=== PATIENT | female | born 1935 | race Caucasian/White ===

== ENCOUNTER 2018-01-12 14:19 | Inpatient (IN) ==
--- NOTE | 2018-01-12 14:39 | Emergency Department Note ---
Disposition Clinical Impression: Decreased ambulation status Fall Qualifiers: Encounter type: initial encounter Qualified Code(s): W19.XXXA - Unspecified fall, initial encounter Closed right hip fracture Qualifiers: Encounter type: initial encounter Qualified Code(s): S72.001A - Fracture of unspecified part of neck of right femur, initial encounter for closed fracture Disposition: Admitted As Inpatient Condition: Good Time of Disposition: 15:47 Fall HPI - General Chief Complaint: ED Fall Stated Complaint: hip injury Time Seen by Provider: 01/12/18 14:21 Source: patient, family, EMS Mode of arrival: EMS Limitations: no limitations Nursing Notes Reviewed: Yes Vital Signs Reviewed: Yes - History of Present Illness HPI Narrative: Patient is an 82-year-old female with past medical history of hypertension, dementia, depression. 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 She presents today due to a fall. Patient states that she was in the kitchen, pulled a drawer out and lost her balance. She fell onto her right hip. She is currently complaining of pain in both hips. Denies hitting her head, loss consciousness, any neck or back pain, chest pain, shortness breath, nausea, vomiting, fevers, diarrhea, abdominal pain, numbness, tingling, weakness. Denies any current vertigo. - Related Data Home Medications Medication Instructions Recorded Confirmed Omeprazole [PriLOSEC] 40 mg PO DAILY 12/08/17 01/12/18 Citalopram Hydrobromide 10 mg PO DAILY 01/12/18 01/12/18 [Citalopram HBr] Docusate [Colace] 100 mg PO DAILY 01/12/18 01/12/18 Melatonin 5 mg PO HS 01/12/18 01/12/18 Multivitamin [One Daily 1 each PO DAILY 01/12/18 01/12/18 Multivitamin] Allergies Allergy/AdvReac Type Severity Reaction Status Date / Time albuterol Allergy Hallucinati Verified 01/12/18 16:29 ng ciprofloxacin [From Cipro] Allergy Nausea Verified 12/08/17 08:06 Penicillins [PCN] Allergy Rash Verified 12/08/17 08:06 Sulfa (Sulfonamide Allergy Anaphylaxis Verified 12/08/17 08:06 Antibiotics) All systems ED: reviewed and negative except as stated. Constitutional: Denies: fever Cardiovascular: Denies: chest pain Respiratory: Denies: cough, dyspnea Gastrointestinal: Denies: abdominal pain, nausea, vomiting, diarrhea Genitourinary: Denies: urgency, dysuria Musculoskeletal: Reports: arthralgia. Denies: back pain, neck pain Neurological: Denies: headache, weakness, numbness, paresthesias Fall PMH - Past Medical History Medical history: Reports: dementia, other Surgical history: Reports: non-contributory Psychiatric history: Reports: no psych history INTERVENTION MANAGER history: Reports: no INTERVENTION MANAGER history - Social History Smoking Status: Never smoker Alcohol use: Reports: none Drug use: Reports: none Physical Exam - General Limitations: no limitations General appearance: alert - Head Head exam: atraumatic, normocephalic, normal inspection - Eye Eye exam: Present: normal appearance, PERRL, EOMI - ENT ENT exam: normal exam, normal oropharynx, mucous membranes moist - Neck Neck exam: Present: normal inspection, full ROM, trachea midline - Chest Chest inspection: Present: normal inspection, symmetric chest wall rise - Respiratory Respiratory exam: Present: normal lung sounds bilaterally - Cardiovascular Cardiovascular exam: Present: regular rate, normal rhythm, normal heart sounds - Abdominal Exam Abdominal exam: Present: soft, Non-Tender. Absent: tenderness, distention, guarding, rebound, rigidity - Extremities Exam Extremities exam: Present: normal inspection, full ROM, tenderness (Right lateral greater trochanter; no obvious shortening of either lower extremity. Neurovascular intact bilateral lower extremities.). Absent: pedal edema - Neurological Exam Neurological exam: Present: alert, oriented X3 - Psychiatric Psychiatric exam: Present: normal affect, normal mood - Skin Skin exam: Present: warm, dry, intact, normal color, other (No bruising) Course Course Narrative: Vitals stable. Tenderness of the right lateral greater trochanter but no obvious fracture or shortening of the extremities. Will perform imaging of the hips for further assessment. 15:44 5 show leukocytosis. Otherwise, no other major lab abnormality. Urinalysis is pending. Chest x-ray negative. Hip x-ray shows comminuted fractures of the right femoral neck, intertrochanteric. Orthopedics was contacted and Dr. Badillo has been consulted. Will come to bedside for evaluation. We will admit the patient for right hip fracture, pain control. We will also order set her as patient is noted to "wander" at night and fear of fall risk. Hip/Pelvis X-Ray 01/12/18 14:25 IMPRESSION: 1. Comminuted intertrochanteric fracture of the right femoral neck 2. No acute abnormalities seen in the pelvis or left hip D/ / Fernando Hart MD / Fernando Hart MD Interpreting Provider: Fernando Hart MD Chest X-Ray 01/12/18 14:27 IMPRESSION: No acute process. D/ / Fernando Hart MD / Fernando Hart MD Interpreting Provider: Fernando Hart MD Vital Signs Temperature 98.2 F 01/12/18 14:29 Pulse Rate 82 01/12/18 14:29 Respiratory Rate 14 01/12/18 14:29 Blood Pressure 124/55 01/12/18 14:29 O2 Sat by Pulse Oximetry 97 01/12/18 14:29 Temperature 98.2 F 01/12/18 14:29 Pulse Rate 74 01/12/18 16:40 Respiratory Rate 16 01/12/18 16:40 Blood Pressure 134/74 01/12/18 16:40 O2 Sat by Pulse Oximetry 100 01/12/18 16:40 Oxygen Delivery Oxygen Delivery Nasal Cannula Fall - MDM Narrative Medical decision making narrative: Vitals stable. Tenderness of the right lateral greater trochanter but no obvious fracture or shortening of the extremities. Will perform imaging of the hips for further assessment. 15:44 5 show leukocytosis. Otherwise, no other major lab abnormality. Urinalysis is pending. Chest x-ray negative. Hip x-ray shows comminuted fractures of the right femoral neck, intertrochanteric. Orthopedics was contacted and Dr. Badillo has been consulted. Will come to bedside for evaluation. We will admit the patient for right hip fracture, pain control. We will also order set her as patient is noted to "wander" at night and fear of fall risk. - Medical Records Medical records reviewed: Yes I reviewed the patient's medical records. - Lab Data Lab results reviewed: Yes I reviewed the patient's lab results. Result diagrams: 01/12/18 14:45 01/12/18 14:45 Lab Results 01/12/18 01/12/18 01/12/18 Range/Units 14:45 14:45 14:45 WBC 19.5 H (4.3-11.1) K/mcL RBC 4.38 (3.82-4.97) M/mcL Hgb 13.2 (11.5-15.4) g/dL Hct 40.1 (35.3-44.9) % MCV 91.6 (83.0-100.0) fL MCH 30.1 (28.0-33.3) pg MCHC 32.9 (31.6-35.5) g/dL RDW 15.3 H (11.5-14.5) % Plt Count 186 (140-400) K/mcL MPV 10.6 (9.4-12.4) fL Immature Gran % 0.7 (0-4) % Seg Neutrophils % 60.5 % Lymphocytes % 31.2 % Monocytes % 6.1 % Eosinophils % 1.2 % Basophils % 0.3 % Neutrophils # 11.8 H (1.6-8.9) K/mcL Lymphocytes # 6.1 H (0.6-4.6) K/mcL Monocytes # 1.2 (0.0-1.3) K/mcL Eosinophils # 0.2 (0.0-0.6) K/mcL Basophils # 0.1 (0.0-0.2) K/mcL Sodium 137 (136-145) mEq/L Potassium 3.9 (3.5-5.1) mEq/L Chloride 107 (98-107) mEq/L Carbon Dioxide 22 L (23-29) mEq/L BUN 9 (8-23) mg/dL Creatinine 0.77 (0.60-1.20) mg/dL Est GFR ( Amer) > 60 (> 60) Est GFR (Non-Af Amer) > 60 (> 60) BUN/Creatinine Ratio 12 (6-26) Glucose 208 H (70-105) mg/dL Calculated Osmolality 289 (280-300) Calcium 8.7 (8.6-10.3) mg/dL Troponin I < 0.03 (< 0.04) ng/mL Blood Type A POSITIVE Antibody Screen NEGATIVE - Radiology Data Radiology results reviewed: Yes I reviewed the patient's radiology results. Hip/Pelvis X-Ray 01/12/18 14:25 IMPRESSION: 1. Comminuted intertrochanteric fracture of the right femoral neck 2. No acute abnormalities seen in the pelvis or left hip D/ / Fernando Hart MD / Fernando Hart MD Interpreting Provider: Fernando Hart MD Chest X-Ray 01/12/18 14:27 IMPRESSION: No acute process. D/ / Fernando Hart MD / Fernando Hart MD Interpreting Provider: Fernando Hart MD S.B.A.R. - S.B.A.R. Situation: Demographics, MOA Background: Presenting Complaint, Relevant PMH, Meds, & Allergies Assessment: Vital Signs, Course and respsone to treatment, Exam Concerns, Patient/Family Expectation, Pertinant Lab Results, Outstanding Labs (UA) Recommendation: Barrier(s) to disposition, Recommendation based on pending studies, treatments, or consults S.B.A.R. Report Given to: Dr. Cervantes
--- NOTE | 2018-01-12 14:45 | Emergency Department Note ---
Disposition Clinical Impression: Fall Qualifiers: Encounter type: initial encounter Qualified Code(s): W19.XXXA - Unspecified fall, initial encounter Disposition: Admitted As Inpatient Condition: Good Forms: ED Satisfaction Letter General Adult HPI - General Chief complaint: ED Fall Stated complaint: hip injury Time Seen by Provider: 01/12/18 14:21 Source: patient, family, EMS Mode of arrival: EMS Limitations: no limitations Nursing Notes Reviewed: Yes Vital Signs Reviewed: Yes - History of Present Illness HPI Narrative: Attestation note: Patient was seen with the emergency medicine resident/nurse practitioner/physician licensed physical therapy assistant/transitional resident/medical student: Dr. LIAM BARAKAT I have personally performed a face to face evaluation on this patient. I have reviewed and agree with history and physical examination patient management and disposition. Briefly the salient points of the case are as follows: 82-year-old female by EMS status post fall while pulling a drawer out in the kitchen. She suffers from vertigo and Alzheimer's. She is not on blood thinners. She fell onto her left hip complains of bilateral hip pain and left groin pain. She appears to have shortening and internal rotation of the left hip. Patient was given 100 g of fentanyl intranasally by EMS prior to arrival which has some resolution of pain. Patient is getting screening labs imaging. Patient is under control at this time. Saline lock in place in case additional doses are needed. Disposition pending. With admission anticipated. Pain Scale: 7 - Related Data Home Medications Medication Instructions Recorded Confirmed Donepezil [Aricept] 10 mg PO HS 12/08/17 12/08/17 Omeprazole [PriLOSEC] 40 mg PO DAILY 12/08/17 12/08/17 Previous Rx's Medication Instructions Recorded Cefdinir [Omnicef] 300 mg PO BID #12 capsule 12/08/17 Allergies Allergy/AdvReac Type Severity Reaction Status Date / Time albuterol Allergy Rash Verified 12/08/17 08:06 ciprofloxacin [From Cipro] Allergy Nausea Verified 12/08/17 08:06 Penicillins [PCN] Allergy Rash Verified 12/08/17 08:06 Sulfa (Sulfonamide Allergy Anaphylaxis Verified 12/08/17 08:06 Antibiotics) Constitutional: Denies: fever Cardiovascular: Denies: chest pain Respiratory: Denies: cough, dyspnea Gastrointestinal: Denies: abdominal pain, nausea, vomiting, diarrhea Genitourinary: Denies: urgency, dysuria Musculoskeletal: Reports: arthralgia. Denies: back pain, neck pain Neurological: Denies: headache, weakness, numbness, paresthesias Past Medical History - Past Medical History Medical history: Reports: dementia, other Surgical history: Reports: non-contributory Psychiatric history: Reports: no psych history MANAGER MEDIA history: Reports: no MANAGER MEDIA history - Social History Smoking Status: Never smoker Smokeless Tobacco Status: No Alcohol use: Reports: none Drug use: Reports: none Physical Exam - General Limitations: no limitations General appearance: alert Course Vital Signs Temperature 98.2 F 01/12/18 14:29 Pulse Rate 82 01/12/18 14:29 Respiratory Rate 14 01/12/18 14:29 Blood Pressure 124/55 01/12/18 14:29 O2 Sat by Pulse Oximetry 97 01/12/18 14:29 Temperature 98.2 F 01/12/18 14:29 Pulse Rate 82 01/12/18 14:29 Respiratory Rate 14 01/12/18 14:29 Blood Pressure 124/55 01/12/18 14:29 O2 Sat by Pulse Oximetry 97 01/12/18 14:29 Oxygen Delivery Oxygen Delivery Room Air
[2018-01-12 14:56] LABS: Basophils # 0.1 K/mcL (0.0-0.2); Basophils % 0.3 %; Eosinophils # 0.2 K/mcL (0.0-0.6); Eosinophils % 1.2 %; Hematocrit 40.1 % (35.3-44.9); Hemoglobin 13.2 g/dL (11.5-15.4); Immature Granulocytes % 0.7 % (0-4); Lymphocytes # 6.1 K/mcL (0.6-4.6); Lymphocytes % 31.2 %; Mean Corpuscular HGB Conc 32.9 g/dL (31.6-35.5); Mean Corpuscular Hemoglobin 30.1 pg (28.0-33.3); Mean Corpuscular Volume 91.6 fL (83.0-100.0); Mean Platelet Volume 10.6 fL (9.4-12.4); Monocytes # 1.2 K/mcL (0.0-1.3); Monocytes % 6.1 %; Neutrophils # 11.8 K/mcL (1.6-8.9); Platelet Count 186 K/mcL (140-400); Red Blood Count 4.38 M/mcL (3.82-4.97); Red Cell Distribution Width 15.3 % (11.5-14.5); Segmented Neutrophils % 60.5 %
[2018-01-12 15:18] LABS: BUN/Creatinine Ratio 12 (6-26); Blood Urea Nitrogen 9 mg/dL (8-23); Calcium 8.7 mg/dL (8.6-10.3); Carbon Dioxide 22 mEq/L (23-29); Chloride 107 mEq/L (98-107); Glucose 208 mg/dL (70-105); Osmolality,Calculated 289 (280-300); Potassium 3.9 mEq/L (3.5-5.1); Sodium 137 mEq/L (136-145); Troponin I < 0.03 ng/mL (< 0.04); eGFR For Non-African Americans > 60 (> 60)
[2018-01-12] MEDS ORDERED: Ondansetron 4 MG/2 ML VIAL IVP ONE ×2 (15:24→17:30)
[2018-01-12] MEDS ORDERED: *HR* FentaNYL (PF) 100 MCG/2 ML VIAL IVP ONE ×2 (15:28→17:30)
--- NOTE | 2018-01-12 17:41 | Internal Med History&Physical ---
<Caitlyn Mon - Last Filed: 01/12/18 18:24> Date of Encounter: 01/12/18 Time of Encounter: 17:15 Internal Medicine - H&P: HPI Chief complaint: right hip fracture Admitted From: Emergency Dept Plans for Post Hospital Care: Transfer Assisted Facility History of present illness: Ms. Hernandez is a 82 year old female with PMH of dementia, hairy cell leukemia, CAD who presented to [facility] after fall. She had an unwitnessed fall at home when pulling a drawer out. Her home health nurse heard her yell for help. She reported she did not hit her head. She is not on anticoagulation. She has never had a fall in the past. Of note, she had a holter monitor on December due to V.fib. On examination her daughter and home health aid were at bedside. They report that her PCP has taken her off all of her BP meds due to hypotension. She denies chest pain, shortness of breath, fever, chills, headache, change in vision, nausea, vomiting, dysuria, hematuria. She denies alcohol, drug, and smoking. Past Med Surg Social Fam HX - Past Medical History Attestation: Yes The following information was validated with the patient. 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 cdiff,constipation,colon polyps,diverticulosis,cardiac cath, Alzheimers Psychiatric history: no psych history - Past Surgical History Surgical History: non-contributory Additional surgical history: splenectomy,carpal tunnel,cardiac stenting, - Social History Smoking Status: Never smoker Smokeless Tobacco Status: No Alcohol use: none Drug use: none - Family History Father Living Status: Mother Living Status: Internal Medicine - H&P: Meds Omeprazole [PriLOSEC] 40 mg PO DAILY 12/08/17 [History] Citalopram Hydrobromide [Citalopram HBr] 10 mg PO DAILY 01/12/18 [History] Docusate [Colace] 100 mg PO DAILY 01/12/18 [History] Melatonin 5 mg PO HS 01/12/18 [History] Multivitamin [One Daily Multivitamin] 1 each PO DAILY 01/12/18 [History] Allergy/AdvReac Type Severity Reaction Status Date / Time albuterol Allergy Hallucinati Verified 01/12/18 16:29 ng ciprofloxacin [From Cipro] Allergy Nausea Verified 12/08/17 08:06 Penicillins [PCN] Allergy Rash Verified 12/08/17 08:06 Sulfa (Sulfonamide Allergy Anaphylaxis Verified 12/08/17 08:06 Antibiotics) All Systems PM: A 10-system review of systems was performed and is negative for pertinent findings except as documented above in the HPI. - Constitutional Constitutional: falls, no chills, no fatigue, no fever(s), no weakness - EENT Eyes: no change in vision - Cardiovascular Cardiovascular ROS IM: no chest pain, no dyspnea, no edema - Respiratory Respiratory: no cough, no dyspnea, no wheezing - Gastrointestinal Gastrointestinal: no abdominal pain, no diarrhea, no nausea, no vomiting - Genitourinary Genitourinary: no dysuria, no hematuria, no urinary frequency, no urinary incontinence, no urinary urgency - Musculoskeletal Musculoskeletal ROS IM: no deformity, no joint swelling, no myalgias - Integumentary Integumentary IM: no pruritus, no rash, no skin ulcer - Neurological Neurological ROS: confusion, memory loss, no headache(s) - Constitutional Vitals: Temp Pulse Resp BP Pulse Ox 98.2 F 74 16 134/74 100 01/12/18 14:29 01/12/18 16:40 01/12/18 16:40 01/12/18 16:40 01/12/18 16:40 General appearance: Present: A&O X 2 (person and place), pleasant, no acute distress Exam: see above - Head Head exam: Present: atraumatic, normal inspection - Eye Eye exam: Present: conjunctival injection. Absent: scleral icterus - ENT ENT exam: Present: mucous membranes moist - Respiratory Respiratory exam: Present: CTAB. Absent: rhonchi, wheezes - Cardiovascular Cardiovascular exam: Present: RRR, +S1, +S2 - GI/Abdominal GI/Abdominal exam: Present: normal bowel sounds, soft. Absent: tenderness - Extremities Exam Extremities exam: Present: normal inspection. Absent: calf tenderness - Expanded Lower Extremities Exam Hip exam: Present: tenderness (right sided ). Absent: ecchymosis, erythema - Neurological Exam Neurological exam: Present: alert. Absent: speech deficit - Psychiatric Psychiatric exam: Present: normal affect, normal mood. Absent: agitated, anxio us - Skin Skin exam: Present: dry, intact Internal Med - H&P Results - Labs CBC & Chem 7: 01/12/18 14:45 01/12/18 14:45 Labs: Short CBC 01/12/18 Range/Units 14:45 WBC 19.5 H (4.3-11.1) K/mcL Hgb 13.2 (11.5-15.4) g/dL Hct 40.1 (35.3-44.9) % Plt Count 186 (140-400) K/mcL Neutrophils # 11.8 H (1.6-8.9) K/mcL BMP 01/12/18 14:45 Sodium 137 Potassium 3.9 Chloride 107 Carbon Dioxide 22 L BUN 9 Creatinine 0.77 Glucose 208 H Calcium 8.7 Cardiac Enzymes 01/12/18 Range/Units 14:45 Troponin I < 0.03 (< 0.04) ng/mL - Impressions ITS Impressions Hip/Pelvis X-Ray 01/12/18 14:25 IMPRESSION: 1. Comminuted intertrochanteric fracture of the right femoral neck 2. No acute abnormalities seen in the pelvis or left hip D/ / Fernando Hart MD / Fernando Hart MD Interpreting Provider: Fernando Hart MD Chest X-Ray 01/12/18 14:27 IMPRESSION: No acute process. D/ / Fernando Hatr MD / Fernando Hart MD Interpreting Provider: Fernando Hart MD - Assessment and plan (1) Closed right hip fracture Current Visit: Yes Status: Acute Assessment and plan: Right hip fracture s/p fall today while pulling a drawer out today. Never had a fracture before. New comminuted intertrochanteric fracture of right femoral neck -Orthopedic surgery has been consulted in ED. Patient to go to OR on Friday. -cardiology has been consulted for cardiac clearance. -pain control with oxycodone -PT/OT after sugery -cardiac diet Qualifiers: Encounter type: initial encounter Qualified Code(s): S72.001A - Fracture of unspecified part of neck of right femur, initial encounter for closed fracture (2) DVT prophylaxis Current Visit: No Status: Acute Assessment and plan: heparin sq (3) Leukocytosis Current Visit: Yes Status: Acute Assessment and plan: Leukocytosis with no clear evidence of infection. Etiology may be secondary to acute hip fracture but also consider UTI since she has frequent UTI. Treated for a UTI a week ago with macrobid. CXR unremarkable WBC 19.5 afebrile plan: -urinalysis ordered -will continue to monitor Qualifiers: Leukocytosis type: unspecified Qualified Code(s): D72.829 - Elevated white blood cell count, unspecified - Time Spent With Patient Total time spent is greater than 50% in coordination of care (as documented) at patient's floor/unit and/or counseling patient: <Garry Dumont - Last Filed: 01/12/18 20:22> Date of Encounter: 01/12/18 Internal Medicine - H&P: HPI History of present illness: Ms. Hernandez is a 82 year old female Past Med Surg Social Fam HX - Past Medical History Source: old records reviewed, obtained from family Medical history: atrial fibrillation, cancer (hairy cell leukemia), coronary artery disease - Family History Father Hx Family Medical Disorders: Yes (Unknown history per family) Mother Cause of : Unknown history All Systems PM: A 10-system review of systems was performed and is negative for pertinent findings except as documented above in the HPI. - Constitutional Vitals: Temp Pulse Resp BP Pulse Ox 97.5 F L 88 15 109/61 95 01/12/18 19:53 01/12/18 19:53 01/12/18 19:53 01/12/18 19:53 01/12/18 19:53 Internal Med - H&P Results - Labs CBC & Chem 7: 01/12/18 14:45 01/12/18 14:45 Labs: Short CBC 01/12/18 Range/Units 14:45 WBC 19.5 H (4.3-11.1) K/mcL Hgb 13.2 (11.5-15.4) g/dL Hct 40.1 (35.3-44.9) % Plt Count 186 (140-400) K/mcL Neutrophils # 11.8 H (1.6-8.9) K/mcL BMP 01/12/18 14:45 Sodium 137 Potassium 3.9 Chloride 107 Carbon Dioxide 22 L BUN 9 Creatinine 0.77 Glucose 208 H Calcium 8.7 Cardiac Enzymes 01/12/18 Range/Units 14:45 Troponin I < 0.03 (< 0.04) ng/mL Urine 01/12/18 Range/Units 17:42 Urine Color Yellow (Yellow) Urine Clarity Clear (Clear) Urine pH 6.5 (5.0-8.0) pH Units Ur Specific [place] 1.008 L (1.010-1.025) Urine Protein Negative (Neg-Trace) mg/dL Urine Glucose (UA) Normal (Normal) mg/dL - Impressions ITS Impressions Hip/Pelvis X-Ray 01/12/18 14:25 IMPRESSION: 1. Comminuted intertrochanteric fracture of the right femoral neck 2. No acute abnormalities seen in the pelvis or left hip D/ / Fernando Hart MD / Fernando Hart MD Interpreting Provider: Fernando Hart MD Chest X-Ray 01/12/18 14:27 IMPRESSION: No acute process. D/ / Fernando Hart MD / Fernando Hart MD Interpreting Provider: Fernando Hart MD - Assessment and plan (1) DVT prophylaxis Current Visit: No Status: Acute (2) Closed right hip fracture Current Visit: Yes Status: Acute Qualifiers: Encounter type: initial encounter Qualified Code(s): S72.001A - Fracture of unspecified part of neck of right femur, initial encounter for closed fracture (3) Leukocytosis Current Visit: Yes Status: Acute Qualifiers: Leukocytosis type: unspecified Qualified Code(s): D72.829 - Elevated white blood cell count, unspecified (4) Hypertension Current Visit: No Status: Chronic Qualifiers: Hypertension type: essential hypertension Qualified Code(s): I10 - Essential (primary) hypertension (5) Atrial fibrillation Current Visit: Yes Status: Chronic Qualifiers: Atrial fibrillation type: paroxysmal Qualified Code(s): I48.0 - Paroxysmal atrial fibrillation (6) 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 Qualifiers: Leukemia Active/Remission status: in remission Qualified Code(s): 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 transplanted heart: [place] heart Associated angina: without angina Qualified Code(s): I25.10 - Atherosclerotic heart disease of [place] coronary artery without angina pectoris (8) Dementia Current Visit: Yes Status: Chronic Qualifiers: Dementia type: Alzheimer's disease Alzheimer's disease onset: late-onset Dementia behavioral disturbance: without behavioral disturbance Qualified Code(s): G30.1 - Alzheimer's disease with late onset; F02.80 - Dementia in other diseases classified elsewhere without behavioral disturbance - Time Spent With Patient Total time spent is greater than 50% in coordination of care (as documented) at patient's floor/unit and/or counseling patient: - Attending Attestation I examined this patient and my medical decision-making was reviewed with the Resident Physician on 01/12/18. I agree with the documented findings, disposition and treatment plan as described except to the extent set forth below. Ms Hernandez is 82 y/o female with dementia brought in after mechanical fall resulting in R hip fracture. She does not remember the event and has some pain. Family at bedside at this time. She has prior hx of a fib and on no cardiac meds at this time. Exam alert comfortable at this time Mucus membranes dry Heart distant and regular No wheeze abd soft No edema I/P 1. R hip fracture 2. Atrial fib 3. Dementia Further diagnoses and plan as above.
[2018-01-12] MEDS ORDERED: Naloxone 0.4 MG/ML INJ IVP PRN (17:47)
[2018-01-12 17:56] LABS: Bilirubin,Urine Negative (Negative); Blood,Urine Negative (Negative); Clarity,Urine Clear (Clear); Color,Urine Yellow (Yellow); Glucose,Urine (UA) Normal (Normal); Ketones,Urine Negative (Negative); Leukocyte Esterase,Urine Trace (Negative); Nitrite,Urine Negative (Negative); PH,Urine 6.5 pH Units (5.0-8.0); Protein,Urine Negative (Neg-Trace); Specific Gravity,Urine 1.008 (1.010-1.025); Urobilinogen,Urine Normal (Normal)
[2018-01-12 17:58] LABS: Bacteria,Urine None Seen per hpf (None-Few); Hyaline Casts,Urine None Seen per lpf (None-Few); RBC,Urine 0-3 per hpf (0-3); Squamous Epithelial Cell,Urine Many per lpf (None-Few); WBC,Urine 0-3 per hpf (0-3)
[2018-01-12] MEDS ORDERED: Acetaminophen 325 MG TABLET PO PRN (18:22)
[2018-01-12] MEDS: *HR* OxyCODONE/APAP 5/325 TABLET PO PRN ×2 (19:06→23:02)
--- NOTE | 2018-01-12 20:26 | Orthopedic Consult Note ---
Date of Encounter: 01/12/18 Time of Encounter: 16:45 Assessment and Plan (1) Closed right hip fracture Current Visit: Yes Status: Acute Qualifiers: Encounter type: initial encounter Qualified Code(s): S72.001A - Fracture of unspecified part of neck of right femur, initial encounter for closed fracture History of Present Illness Chief complaint: Right leg pain HPI: Ms. Hernandez is a 82 year old female presenting to [facility] after falling earlier this afternoon. She presents with her daughter (TARIQ) and caregiver. Her caregiver states that she was in another room and the patient cried for help and when she went to help her, patient had fallen onto tile floor and was unable to walk. According to family, she lives at home and prior to injury, ambulated independently. Patient has a past medical history of Alzheimer Dementia, Hypertension and recurrent UTI. Her daughter, Anyi, also mentions that she has had chronic, intermittent vertigo that is ongoing in evaluation. Also stated is patient completed course of antibiotics appx 1 week ago for UTI. Xrays reviewed demonstrating: XR/XR hip AP pelvis BI IMPRESSION: 1. Comminuted intertrochanteric fracture of the right femoral neck 2. No acute abnormalities seen in the pelvis or left hip D/ / Fernando Hart MD / Fernando Hart MD Labwork reviewed: concern re: elevated WBC Patient admits to pain in her right leg. Denies pain elsewhere. Denies history of anticoagulant use, previous fracture, history of blood clot. On exam patient is resting comfortably in ED cot. Daughter and caregiver at beds papi. Right LE has large area of swelling to anterior proximal thigh. Right LE is shortened and rotated. Warmth to palpation in the area of swelling as well as tenderness. No erythema, induration, or drainage noted. No calf tenderness, erythema or warmth to b/l LE. Right and left ankle/toe ROM intact. Motion to LLE restricted secondary to pain in RLE. Neurovascularly intact to b/l LE. Assessment: Comminuted intertrochanteric fracture of the right femoral neck Plan: Intramedullary nail fixation of the right femoral neck per Dr. Badillo. Spoke with patient, daughter (TARIQ) and caregiver regarding xray findings as well as risks and benefits - all questions and concerns discussed to their stated satisfaction. Consent obtained via POA after discussion with patient. Spoke with Dr. Dumont regarding elevated WBC and recent UTI. She states patient requires cardiac clearance prior to surgical intervention secondary to recent Holter monitor findings. Discussed with Dr. Badillo - plan for surgery Friday, 01/14. No motion to RLE. Non-weightbearing to RLE. Pain medication and medical management via Dr. Dumont and her team. NPO after midnight on 01/14 in anticipation of surgery 01/14. Thank you for this consultation. 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 cdiff,constipation,colon polyps,diverticulosis,cardiac cath, Alzheimers Psychiatric history: no psych history - Past Surgical History Surgical History: non-contributory Additional surgical history: splenectomy,carpal tunnel,cardiac stenting, - Social History Smoking Status: Former smoker Smokeless Tobacco Status: No Alcohol use: none Drug use: none - Family History Father Living Status: Hx Family Medical Disorders: Yes (Unknown history per family) Mother Living Status: Cause of : Unknown history Medications and Allergies Omeprazole [PriLOSEC] 40 mg PO DAILY 12/08/17 [History] Citalopram Hydrobromide [Citalopram HBr] 10 mg PO DAILY 01/12/18 [History] Docusate [Colace] 100 mg PO DAILY 01/12/18 [History] Melatonin 5 mg PO HS 01/12/18 [History] Multivitamin [One Daily Multivitamin] 1 each PO DAILY 01/12/18 [History] Allergy/AdvReac Type Severity Reaction Status Date / Time albuterol Allergy Hallucinati Verified 01/12/18 16:29 ng ciprofloxacin [From Cipro] Allergy Nausea Verified 12/08/17 08:06 Penicillins [PCN] Allergy Rash Verified 12/08/17 08:06 Sulfa (Sulfonamide Allergy Anaphylaxis Verified 12/08/17 08:06 Antibiotics) All Systems Reviewed: The remainder of the systems were reviewed and are negative Review of systems: as per HPI Physical Exam - Constitutional Vitals: Temp Pulse Resp BP Pulse Ox 97.5 F L 88 15 109/61 95 01/12/18 19:53 01/12/18 19:53 01/12/18 19:53 01/12/18 19:53 01/12/18 19:53 Results - Labs Result Diagrams: 01/12/18 14:45 01/12/18 14:45 Labs: Abnormal lab results WBC 19.5 K/mcL (4.3-11.1) H 01/12/18 14:45 RDW 15.3 % (11.5-14.5) H 01/12/18 14:45 Neutrophils # 11.8 K/mcL (1.6-8.9) H 01/12/18 14:45 Lymphocytes # 6.1 K/mcL (0.6-4.6) H 01/12/18 14:45 Carbon Dioxide 22 mEq/L (23-29) L 01/12/18 14:45 Glucose 208 mg/dL (70-105) H 01/12/18 14:45 Ur Specific [place] 1.008 (1.010-1.025) L 01/12/18 17:42 Ur Leukocyte Esterase Trace (Negative) H 01/12/18 17:42 Ur Squamous Epith Cells Many per lpf (None-Few) H 01/12/18 17:42 Ur Culture Indicated? NO. (NO) A 01/12/18 17:42 H & H 01/12/18 Range/Units 14:45 Hgb 13.2 (11.5-15.4) g/dL Hct 40.1 (35.3-44.9) % All other labs normal. - Diagnostic results Hip AP/Lateral x-ray: report reviewed, image reviewed Consult Discharge Plan - Plan Referrals: Rhonda Shay MD [Primary Care Provider] -
[2018-01-12] MEDS: Melatonin 3 MG TABLET PO SCH (21:51)
[2018-01-13] MEDS: *HR* Heparin 5,000 UNIT/ML VIAL SQ SCH ×2 (06:07→18:18)
[2018-01-13 06:50] LABS: Basophils % 0.2 %; Eosinophils % 0.2 %; Hematocrit 35.7 % (35.3-44.9); Hemoglobin 11.8 g/dL (11.5-15.4); Immature Granulocytes % 0.3 % (0-4); Lymphocytes # 2.7 K/mcL (0.6-4.6); Lymphocytes % 26.5 %; Mean Corpuscular HGB Conc 33.1 g/dL (31.6-35.5); Mean Corpuscular Volume 90.8 fL (83.0-100.0); Mean Platelet Volume 11.4 fL (9.4-12.4); Monocytes % 9.7 %; Neutrophils # 6.5 K/mcL (1.6-8.9); Platelet Count 145 K/mcL (140-400); Red Blood Count 3.93 M/mcL (3.82-4.97); Segmented Neutrophils % 63.1 %
[2018-01-13 07:01] LABS: BUN/Creatinine Ratio 15 (6-26); Blood Urea Nitrogen 14 mg/dL (8-23); Calcium 8.7 mg/dL (8.6-10.3); Carbon Dioxide 25 mEq/L (23-29); Chloride 105 mEq/L (98-107); Glucose 128 mg/dL (70-105); Osmolality,Calculated 286 (280-300); Potassium 4.3 mEq/L (3.5-5.1); Sodium 137 mEq/L (136-145); eGFR For Non-African Americans 58 (> 60)
[2018-01-13] MEDS: *HR* OxyCODONE/APAP 5/325 TABLET PO PRN ×2 (10:11→16:43)
--- NOTE | 2018-01-13 10:11 | Internal Med Progress Note ---
<Caitlyn Mon - Last Filed: 01/13/18 13:05> Hospitalist Progress Note - Encounter Date of Encounter: 01/13/18 Time of Encounter: 10:11 - Subjective Interval History: Patient seen and examined at bedside. Her daughter is at the bedside. She is alert and oriented. Her nurse reported that she has required very little pain medication. The patient reported that her pain is well under control. She denies fever, chills, chest pain, shortness of breath. - Exam Vitals: Temp Pulse Resp BP Pulse Ox 98.5 F 71 15 111/60 94 01/13/18 07:13 01/13/18 07:13 01/13/18 07:13 01/13/18 07:13 01/13/18 07:13 Exam: Gen.: Vitals noted. No acute distress. alert HEENT: oropharynx clear, Normocephalic, atraumatic Neck: Supple. No adenopathy Cardiac: RRR, no murmur, +S1/S2, no BLE edema Pulmonary: CTA bilaterally, no wheezes, rales or rhonchi, equal chest expansion Abdomen: soft, nontender, Bowel sounds noted, no guarding MSK: right hip tenderness, ROM intact, no joint swelling noted Extremities: nontender calf, no cyanosis or clubbing Neuro: moves all extremities, no focal deficits Psych: Appropriate mood and behavior - Assessment and Plan (1) Closed right hip fracture Current Visit: Yes Status: Acute Assessment and Plan: Right hip fracture s/p fall today while pulling a drawer out today. Never had a fracture before. New comminuted intertrochanteric fracture of right femoral neck -Orthopedic surgery has been consulted in ED. Patient to go to OR on Friday. -cardiology has been consulted for cardiac clearance and deemed intermediate risk -pain control with oxycodone -PT/OT after sugery -cardiac diet, NPO after midnight (2) Hypertension Current Visit: No Status: Chronic Assessment and Plan: History of HTN but taken off BP meds due to hypotension. BP stable. (3) Leukocytosis Current Visit: Yes Status: Acute Assessment and Plan: Resolved. no clear evidence of infection. Etiology secondary to acute hip fracture CXR unremarkable WBC 10.5 (19.5) afebrile U/A: trace LE asymptomatic -will continue to monitor (4) Atrial fibrillation Current Visit: Yes Status: Chronic Assessment and Plan: history of A.fib. not on anticoagulation. stable (5) CAD (coronary artery disease) Current Visit: Yes Status: Chronic Assessment and Plan: Known CAD. Stable (6) 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 Assessment and Plan: history of known hairy cell leukemia (7) Dementia Current Visit: Yes Status: Chronic Assessment and Plan: History known dementia. Alert and oriented times to [address] She is at baseline and is not agitated or in acute distress. DVT Prophylaxis: heparin sq - Time Spent with Patient Total time spent is greater than 50% in coordination of care (as documented) at patient's floor/unit and/or counseling patient: Internal Medicine: Result - Labs CBC & Chem 7: 01/13/18 05:48 01/13/18 05:48 Labs: Short CBC 01/12/18 01/13/18 Range/Units 14:45 05:48 WBC 19.5 H 10.2 (4.3-11.1) K/mcL Hgb 13.2 11.8 (11.5-15.4) g/dL Hct 40.1 35.7 (35.3-44.9) % Plt Count 186 145 (140-400) K/mcL Neutrophils # 11.8 H 6.5 (1.6-8.9) K/mcL BMP 01/12/18 01/13/18 14:45 05:48 Sodium 137 137 Potassium 3.9 4.3 Chloride 107 105 Carbon Dioxide 22 L 25 BUN 9 14 Creatinine 0.77 0.92 Glucose 208 H 128 H Calcium 8.7 8.7 Cardiac Enzymes 01/12/18 Range/Units 14:45 Troponin I < 0.03 (< 0.04) ng/mL Urine 01/12/18 Range/Units 17:42 Urine Color Yellow (Yellow) Urine Clarity Clear (Clear) Urine pH 6.5 (5.0-8.0) pH Units Ur Specific [place] 1.008 L (1.010-1.025) Urine Protein Negative (Neg-Trace) mg/dL Urine Glucose (UA) Normal (Normal) mg/dL - Impressions Impressions Hip/Pelvis X-Ray 01/12/18 14:25 IMPRESSION: 1. Comminuted intertrochanteric fracture of the right femoral neck 2. No acute abnormalities seen in the pelvis or left hip D/ / Fernando Hart MD / Fernando Hart MD Interpreting Provider: Fernando Hart MD Chest X-Ray 01/12/18 14:27 IMPRESSION: No acute process. D/ / Fernando Hart MD / Fernando Hart MD Interpreting Provider: Fernando Hart MD Consult Discharge Plan - Plan Referrals: Rhonda Shay MD [Primary Care Provider] - <Ronit Gomez - Last Filed: 01/13/18 15:44> Hospitalist Progress Note - Encounter Date of Encounter: 01/13/18 - Exam Vitals: Temp Pulse Resp BP Pulse Ox 98.8 F 84 16 104/64 90 01/13/18 14:35 01/13/18 14:35 01/13/18 14:35 01/13/18 14:35 01/13/18 14:35 - Assessment and Plan (1) 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 (2) Hypertension Current Visit: No Status: Chronic (3) Closed right hip fracture Current Visit: Yes Status: Acute (4) Leukocytosis Current Visit: Yes Status: Acute (5) Atrial fibrillation Current Visit: Yes Status: Chronic (6) CAD (coronary artery disease) Current Visit: Yes Status: Chronic (7) Dementia Current Visit: Yes Status: Chronic - Time Spent with Patient Total time spent is greater than 50% in coordination of care (as documented) at patient's floor/unit and/or counseling patient: Internal Medicine: Result - Labs CBC & Chem 7: 01/13/18 05:48 01/13/18 05:48 Labs: Short CBC 01/13/18 Range/Units 05:48 WBC 10.2 (4.3-11.1) K/mcL Hgb 11.8 (11.5-15.4) g/dL Hct 35.7 (35.3-44.9) % Plt Count 145 (140-400) K/mcL Neutrophils # 6.5 (1.6-8.9) K/mcL BMP 01/13/18 05:48 Sodium 137 Potassium 4.3 Chloride 105 Carbon Dioxide 25 BUN 14 Creatinine 0.92 Glucose 128 H Calcium 8.7 Urine 01/12/18 Range/Units 17:42 Urine Color Yellow (Yellow) Urine Clarity Clear (Clear) Urine pH 6.5 (5.0-8.0) pH Units Ur Specific [place] 1.008 L (1.010-1.025) Urine Protein Negative (Neg-Trace) mg/dL Urine Glucose (UA) Normal (Normal) mg/dL - Attending Attestation I examined this patient and my medical decision-making was reviewed with the Resident Physician Dr Mon. I agree with the documented findings, disposition and treatment plan as described except to the extent set forth below. Ms Hernandez is admitted with right hip fx awake, daughter at bedisdie, + right hip pain, tolerable. no nausea, emesis, cp, pressure, sob or palpitations. gen- alert, awake,appears stated age cv- reg rate and rhythm, normal s1,s2, no murmurs appreciated, no le edema lungs- ctabl, no wheezing, rhonchi or crackles, normal resp effort abd- soft, non tender, non distended, + bs msk- right leg shortening and ext rotation, right foot rom intact neuro- AAOxperson, place, situation r hip fracture- ortho following, cards risk eval for surgery, or in am paf- currently nsr, previously on eliquis stopped by pcp as no recurrence and BB which was dc due to hypotension, monitor lycatia, linneac 5 but given falls cards rec and family agrees asa only best given risk vs benefit--will start post op leukocytosis- likely reactive s/p frx, resolved without intervention dementia- high risk delirium post op and with pain meds, monitor and re orient as needed further diagnoses and treatment as documented by resident <Caitlyn Mon - Last Filed: 01/13/18 13:05> (1) Closed right hip fracture Qualifiers: Encounter type: initial encounter Qualified Code(s): S72.001A - Fracture of unspecified part of neck of right femur, initial encounter for closed fracture (2) Hypertension Qualifiers: Hypertension type: essential hypertension Qualified Code(s): I10 - Essential (primary) hypertension (3) Leukocytosis Qualifiers: Leukocytosis type: unspecified Qualified Code(s): D72.829 - Elevated white blood cell count, unspecified (4) Atrial fibrillation Qualifiers: Atrial fibrillation type: paroxysmal Qualified Code(s): I48.0 - Paroxysmal atrial fibrillation (5) CAD (coronary artery disease) Qualifiers: Coronary Disease-Associated Artery/Lesion type: tribe artery [place] vs. transplanted heart: tribe heart Associated angina: without angina Qualified Code(s): I25.10 - Atherosclerotic heart disease of tribe coronary artery without angina pectoris (6) Hairy cell leukemia Qualifiers: Leukemia Active/Remission status: in remission Qualified Code(s): 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, in remission (7) Dementia Qualifiers: Dementia type: Alzheimer's disease Alzheimer's disease onset: late-onset Dementia behavioral disturbance: without behavioral disturbance Qualified Code(s): G30.1 - Alzheimer's disease with late onset; F02.80 - Dementia in other diseases classified elsewhere without behavioral disturbance <Ronit Gomez - Last Filed: 01/13/18 15:44> (1) Hairy cell leukemia Qualifiers: Leukemia Active/Remission status: in remission Qualified Code(s): C91.41 - H airy cell leukemia, in remission (2) Hypertension Qualifiers: Hypertension type: essential hypertension Qualified Code(s): I10 - Essential (primary) hypertension (3) Closed right hip fracture Qualifiers: Encounter type: initial encounter Qualified Code(s): S72.001A - Fracture of unspecified part of neck of right femur, initial encounter for closed fracture (4) Leukocytosis Qualifiers: Leukocytosis type: unspecified Qualified Code(s): D72.829 - Elevated white blood cell count, unspecified (5) Atrial fibrillation Qualifiers: Atrial fibrillation type: paroxysmal Qualified Code(s): I48.0 - Paroxysmal atrial fibrillation (6) CAD (coronary artery disease) Qualifiers: Coronary Disease-Associated Artery/Lesion type: tribe artery [place] vs. transplanted heart: tribe heart Associated angina: without angina Qualified Code(s): I25.10 - Atherosclerotic heart disease of tribe coronary artery without angina pectoris (7) Dementia Qualifiers: Dementia type: Alzheimer's disease Alzheimer's disease onset: late-onset Dementia behavioral disturbance: without behavioral disturbance Qualified Code(s): G30.1 - Alzheimer's disease with late onset; F02.80 - Dementia in other diseases classified elsewhere without behavioral disturbance
--- NOTE | 2018-01-13 10:20 | Cardiology Consult Note ---
Date of Encounter: 01/13/18 Time of Encounter: 10:19 Assessment and Plan (1) Pre-operative cardiovascular examination Current Visit: Yes Status: Acute Consulted for pre-operate cardiac risk stratification for intramedullary nail fixation of the right femoral neck per Dr. Badillo for right femoral neck fx. Hx of CAD s/p PCI in the remote past ~15 years ago. PAF episode 08/2017 in setting of PNA. TTE 09/10/17 EF 60-65%, mild cLVH, severe biatrial enlargement, mild-moderate MR, mild TR, mild phtn. Holter 12/17/17 frequent PVCs and PACs, one 4 beat run NSVT, frequent brief SVT episodes. No events noted on inpt tele. Currently SR. Poor functional capacity. Pt does admit to using the vacuum without experiencing chest pain. Has chronic exertional dyspnea. ECG SR, PVC. Pt is at least intermediate risk from cardiac standpoint given her age, hx and poor functional capacity to proceed with intramedullary nail fixation of the right femoral neck. EF is preserved, no ischemic ECG findings. Given acuity of hip fx and need for surgery, do not anticipate any further inpt cardiac work-up. Will discuss and review with Dr. Stephens. (2) PAF (paroxysmal atrial fibrillation) Current Visit: Yes Status: Acute Episode of PAF 08/2017 in setting of PNA. Previously on BB and Eliquis for AC--stopped by PCP given no recurrence. BB stopped due to hypotension. [id number] 5 (Age, HTN, CAD, Female). High CVA risk. Daughter at bedside reports this is not pt's first fall. Given falls risk and no documented recurrence of PAF, would recommend ASA only. Pt and daughter aware of increased CVA risk not on AC. (3) CAD (coronary artery disease) Current Visit: Yes Status: Chronic Hx CAD and PCI ~15 years ago. Denies CP. Would recommend ASA and Statin. BB stopped by PCP due to hypotension. Qualifiers: Coronary Disease-Associated Artery/Lesion type: [place] artery [place] vs. transplanted heart: [place] heart Associated angina: without angina Qualified Code(s): I25.10 - Atherosclerotic heart disease of [place] coronary artery without angina pectoris Discussion w patient/family: The assessment and plan as outlined above was discussed with the patient and/or family members who expressed understanding and agreement. All questions were answered. Thank you for involving us in the care of your patient. Please call with any questions. I will discuss all the above with Dr. Stephens and make changes as necessary. History of Present Illness Consult date: 01/13/18 Consult reason: Pre-op Chief complaint: right hip pain History of present illness: Ms. Hernandez is a 82 year old female with PMH of dementia, hairy cell leukemia, CAD s/p PCI in remote past, episode of PAF 08/2017 in setting of PNA who presented to [facility] after a fall. She had an unwitnessed fall at home when pulling a drawer out. She denies loss of consciousness. She denies chest pain or dyspnea. Pt found to have a right femoral neck fx. Plan is for Intramedullary nail fixation of the right femoral neck per Dr. Badillo. Cardiology consulted for pre-op risk stratification. Pt had a recent holter ordered by her PCP to evaluate for recurrence of A-Fib. There were frequent PVCs, PACs, frequent brief SVT, one 4 beat run NSVT. No A-Fib noted. PCP stopped anticoagulation given only one confirmed A-Fib episode. Pt's daughter at bedside, reports this is not pt's first fall, has fallen many times. BB was also stopped due to hypotension. Prior CV testing TTE 09/10/17: Atrial fibrillation with RVR. LVEF 60-65%. Mild concentric left ventricular hypertrophy. Indeterminate diastolic function. Normal right ventricu lar structure and function. Severe bi-atrial enlargement. Mild-moderate mitral regurgitation. Mild tricuspid regurgitation. Mild pulmonary hypertension. Holter 12/17/17: Diary returned. Symptoms correlate with sinus rhythm, artifact, PACs and PVCs. Frequent PVCs. One 4-beat NSVT. Frequent PACs. Frequent brief SVT, longest 3 beats. 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 cdiff,constipation,colon polyps,diverticulosis,cardiac cath, Alzheimers Psychiatric history: no psych history - Past Surgical History Surgical History: non-contributory Additional surgical history: splenectomy,carpal tunnel,cardiac stenting, - Social History Smoking Status: Former smoker Smokeless Tobacco Status: No Alcohol use: none Drug use: none - Family History Father Living Status: Hx Family Medical Disorders: Yes (Unknown history per family) Mother Living Status: Cause of : Unknown history Medications and Allergies Omeprazole [PriLOSEC] 40 mg PO DAILY 12/08/17 [History] Citalopram Hydrobromide [Citalopram HBr] 10 mg PO DAILY 01/12/18 [History] Docusate [Colace] 100 mg PO DAILY 01/12/18 [History] Melatonin 5 mg PO HS 01/12/18 [History] Multivitamin [One Daily Multivitamin] 1 each PO DAILY 01/12/18 [History] Allergy/AdvReac Type Severity Reaction Status Date / Time albuterol Allergy Hallucinati Verified 01/12/18 16:29 ng ciprofloxacin [From Cipro] Allergy Nausea Verified 12/08/17 08:06 Penicillins [PCN] Allergy Rash Verified 12/08/17 08:06 Sulfa (Sulfonamide Allergy Anaphylaxis Verified 12/08/17 08:06 Antibiotics) All Systems Review: The remainder of the systems were reviewed and are negative - Constitutional Constitutional: frequent falls - Cardiovascular Cardiovascular: dyspnea on exertion Physical Examination Vital Signs, Last 4 Hours Temp Pulse Resp BP Pulse Ox 01/13/18 07:13 98.5 F 71 15 111/60 94 Vital Signs Temp Pulse Resp BP Pulse Ox 01/13/18 07:13 98.5 F 71 15 111/60 94 01/13/18 04:10 99.2 F 84 14 106/71 94 01/12/18 19:53 97.5 F L 88 15 109/61 95 01/12/18 19:00 98.5 F 145 15 99/62 93 01/12/18 16:40 74 16 134/74 100 01/12/18 15:34 69 147/90 98 01/12/18 14:29 98.2 F 82 14 124/55 97 Intake and Output 01/12/18 01/13/18 01/13/18 23:59 07:59 15:59 Intake Total 0 / 0 0 / 0 480 / 480 Output Total 0 / 0 400 / 400 Balance 0 / 0 -400 / -400 480 / 480 Intake: Oral 0 / 0 0 / 0 480 / 480 Output: Urine 0 / 0 Catheter 400 / 400 Other: Meal npo Percent of Meal Consumed 0% # Bowel Movements 0 0 Weight 61.5 kg 61.5 kg Patient Weight 01/13/18 23:59 Weight 61.5 kg General: Conversant, No Apparent Distress HEENT: Atraumatic, Normocephaly, Mucus Membranes Moist Neck: No JVD, Normal carotid pulses Cardiac: Reg Rate and Rhythm, Normal S1 and S2, No Murmur Lungs: Normal Breath Sounds, No Wheeze, Rales, Rhonchi Neuro: Other (confused at times) Abdomen: Soft, Non-Tender Skin: No rashes noted on visualized skin Musculoskeletal: No Chest Wall Tenderness Extremities: No Clubbing, No Cyanosis, No Edema, Normal Pulses Results 01/13/18 05:48 01/13/18 05:48 Lab Results 01/12/18 01/12/18 01/13/18 14:45 14:45 05:48 WBC 19.5 H 10.2 Hgb 13.2 11.8 Hct 40.1 35.7 Plt Count 186 145 Sodium 137 Potassium 3.9 Chloride 107 Carbon Dioxide 22 L BUN 9 Creatinine 0.77 Glucose 208 H Calcium 8.7 Troponin I < 0.03 01/13/18 05:48 WBC Hgb Hct Plt Count Sodium 137 Potassium 4.3 Chloride 105 Carbon Dioxide 25 BUN 14 Creatinine 0.92 Glucose 128 H Calcium 8.7 Troponin I Short CBC 01/13/18 01/12/18 Range/Units 05:48 14:45 WBC 10.2 19.5 H (4.3-11.1) K/mcL Hgb 11.8 13.2 (11.5-15.4) g/dL Hct 35.7 40.1 (35.3-44.9) % Plt Count 145 186 (140-400) K/mcL Neutrophils # 6.5 11.8 H (1.6-8.9) K/mcL BMP 01/13/18 01/12/18 Range/Units 05:48 14:45 Sodium 137 137 (136-145) mEq/L Potassium 4.3 3.9 (3.5-5.1) mEq/L Chloride 105 107 (98-107) mEq/L Carbon Dioxide 25 22 L (23-29) mEq/L BUN 14 9 (8-23) mg/dL Creatinine 0.92 0.77 (0.60-1.20) mg/dL Glucose 128 H 208 H (70-105) mg/dL Calcium 8.7 8.7 (8.6-10.3) mg/dL Cardiac Enzymes 01/12/18 Range/Units 14:45 Troponin I < 0.03 (< 0.04) ng/mL Urine 01/12/18 Range/Units 17:42 Urine Color Yellow (Yellow) Urine Clarity Clear (Clear) Urine pH 6.5 (5.0-8.0) pH Units Ur Specific [place] 1.008 L (1.010-1.025) Urine Protein Negative (Neg-Trace) mg/dL Urine Glucose (UA) Normal (Normal) mg/dL Impressions Hip/Pelvis X-Ray 01/12/18 14:25 IMPRESSION: 1. Comminuted intertrochanteric fracture of the right femoral neck 2. No acute abnormalities seen in the pelvis or left hip D/ / Fernando Hart MD / Fernando Hart MD Interpreting Provider: Fernando Hart MD Chest X-Ray 01/12/18 14:27 IMPRESSION: No acute process. D/ / Fernando Hart MD / Fernando Hart MD Interpreting Provider: Fernando Hart MD Active Medications Acetaminophen (Tylenol) 325 mg PO Q4HR PRN PRN Reason: Pain Stop: 07/14/18 18:23 Citalopram Hydrobromide (Celexa) 10 mg PO DAILY [facility] Stop: 07/15/18 09:01 Last Admin: 01/13/18 10:11 Dose: 10 mg Heparin Sodium (Porcine) (Heparin) 5,000 unit SQ Q12HCO [facility] Stop: 07/15/18 06:01 Last Admin: 01/13/18 06:07 Dose: 5,000 unit Melatonin (Melatonin) 6 mg PO HS [facility] Stop: 07/14/18 21:01 Last Admin: 01/12/18 21:51 Dose: 6 mg Naloxone HCl (Narcan) 0.4 mg IVP Q2MIN PRN PRN Reason: SEE COMMENTS Stop: 07/14/18 17:48 Oxycodone/Acetaminophen (Percocet 5/325) 1 each PO Q4HR PRN PRN Reason: Moderate Pain Stop: 07/14/18 18:23 Last Admin: 01/13/18 10:11 Dose: 1 each - Imaging and Cardiology Echo: report reviewed Holter: report reviewed - EKG Interpretation EKG results cardiology: personally reviewed (SR), other (12 hr tele AVG HR 79, SR) Consult Discharge Plan - Plan Referrals: Rhonda Shay MD [Primary Care Provider] -
--- NOTE | 2018-01-13 12:02 | Orthopedics Progress Note ---
Date of Encounter: 01/13/18 Time of Encounter: 12:02 - Assessment and Plan (1) Closed right hip fracture Current Visit: Yes Status: Acute Plan for OR tomorrow 01/13 at 7:45AM with . Cardio saw her today. Poor functional capacity. Pt does admit to using the vacuum without experiencing chest pain. Has chronic exertional dyspnea. ECG SR, PVC. Pt is at least intermediate risk from cardiac standpoint given her age, hx and poor functional capacity to proceed with intramedullary nail fixation of the right femoral neck. EF is preserved, no ischemic ECG findings. Given acuity of hip fx and need for surgery, do not anticipate any further inpt cardiac work-up. Will discuss and review with Dr. Stephens. WBC returned to baseline. UA was negative for bacteria. Right Hip IM Nailing. NPO aftermidnight. DVT prophylaxis - added foot pumps Added Flexeril 5mg BID, Ofirmev 1000mg q 8 hours for pain control. CHG bath tonight and in AM Qualifiers: Encounter type: initial encounter Qualified Code(s): S72.001A - Fracture of unspecified part of neck of right femur, initial encounter for closed fracture Subjective Principal diagnosis: Right Hip Fracture Interval history: Hospital Day #1 Patient admitted on 01/12 to hospitalist for a Right hip fracture, Planned surgery with 01/14 at 7:45AM. Patient with Alzheimers disease, and not oriented to place or time. She is pleasant and stating she has pain along the right side of her leg. Exam: RLE: ER and shortened Minimal swelling. No erythema or ecchymosis noted. ROM limited. NV intact distally. Objective Vital signs: Vital Signs Temp Pulse Resp BP Pulse Ox 01/13/18 07:13 98.5 F 71 15 111/60 94 01/13/18 04:10 99.2 F 84 14 106/71 94 01/12/18 19:53 97.5 F L 88 15 109/61 95 01/12/18 19:00 98.5 F 145 15 99/62 93 01/12/18 16:40 74 16 134/74 100 01/12/18 15:34 69 147/90 98 01/12/18 14:29 98.2 F 82 14 124/55 97 Intake and Output 01/12/18 01/13/18 01/13/18 23:59 07:59 15:59 Intake Total 0 / 0 0 / 0 480 / 480 Output Total 0 / 0 400 / 400 Balance 0 / 0 -400 / -400 480 / 480 Intake: Oral 0 / 0 0 / 0 480 / 480 Output: Urine 0 / 0 Catheter 400 / 400 Other: Meal npo Percent of Meal Consumed 0% # Bowel Movements 0 0 Weight 61.5 kg 61.5 kg Patient Weight 01/13/18 23:59 Weight 61.5 kg - Labs CBC & BMP: 01/13/18 05:48 01/13/18 05:48 Labs: Abnormal lab results RDW 15.0 % (11.5-14.5) H 01/13/18 05:48 Est GFR (Non-Af Amer) 58 (> 60) L 01/13/18 05:48 Glucose 128 mg/dL (70-105) H 01/13/18 05:48 Ur Specific [place] 1.008 (1.010-1.025) L 01/12/18 17:42 Ur Leukocyte Esterase Trace (Negative) H 01/12/18 17:42 Ur Squamous Epith Cells Many per lpf (None-Few) H 01/12/18 17:42 Ur Culture Indicated? NO. (NO) A 01/12/18 17:42 Consult Discharge Plan - Plan Referrals: Rhonda Shay MD [Primary Care Provider] -
[2018-01-13] MEDS: Melatonin 3 MG TABLET PO SCH (19:50)
--- NOTE | 2018-01-13 20:20 | Anesthesia Evaluation PreOp ---
Date of Encounter: 01/13/18 Time of Encounter: 21:37 - Past History Planned Operation: RIGHT HIP INTERTRONCHANTERIC FX ORIF Cardiac History: Arrhythmia (PAF 08/2017, CURRENTLY NSR, HOLTER 11/2017: PVCs, PACs), Cardiac Stent (CAD WITH PCI ~ 15 YRS AGO), Other (POOR EXCERCISE CAPACITY, BUSTAMANTE, EF 60%, MOD MR, SEVERE BIATRIAL ENLARGEMENT) Pulmonary History: Denies Any Significant HX GREASE MAKER History: Other (SEVERE DEMENTIA) Other Medical History: Renal (CKD), GERD Anesthesia History: No Prior Anesthetic Complications, Past Anesthesia (SPLENECTOMY,) Alcohol Use: none Drug use: none Medications and Allergies Omeprazole [PriLOSEC] 40 mg PO DAILY 12/08/17 [History] Citalopram Hydrobromide [Citalopram HBr] 10 mg PO DAILY 01/12/18 [History] Docusate [Colace] 100 mg PO DAILY 01/12/18 [History] Melatonin 5 mg PO HS 01/12/18 [History] Multivitamin [One Daily Multivitamin] 1 each PO DAILY 01/12/18 [History] Allergy/AdvReac Type Severity Reaction Status Date / Time albuterol Allergy Hallucinati Verified 01/12/18 16:29 ng ciprofloxacin [From Cipro] Allergy Nausea Verified 12/08/17 08:06 Penicillins [PCN] Allergy Rash Verified 12/08/17 08:06 Sulfa (Sulfonamide Allergy Anaphylaxis Verified 12/08/17 08:06 Antibiotics) - Meds/Allergy Pre-op Review Medications Reviewed: Yes Allergies Reviewed: Yes Beta Blockers on Current Med List: No Anesthesia Results - Labs 01/13/18 05:48 01/13/18 05:48 Laboratory Tests 01/12/18 01/13/18 14:45 05:48 Est GFR (Non-Af Amer) 58 L Calcium 8.7 Troponin I < 0.03 Anesthesia Exam Vital Signs/O2 Sat/Glucose, Most Recent Temp Pulse Resp BP Pulse Ox 100.4 F H 92 18 117/70 91 01/13/18 20:08 01/13/18 20:08 01/13/18 20:08 01/13/18 20:08 01/13/18 20:08 Weight: 62 KG - BMI 23 NPO (# of Hours): NPO >MN - HEENT Mallampati: I Teeth: Missing Oral Opening: Greater than 3 - Cardiac Rhythm: Regular - Pulmonary Breath Sounds: bilateral Clear Respiratory Effort: Symmetrical Anesthesia Assess/Plan ASA Score: 3 Anesthetic Plan: General, Spinal Monitoring Plan: Standard Monitors Recovery Plan: PACU Anes Supervising Prov Stmt: PATIENT WITH SEVERE DEMENTIA. PATIENT EXAMINED, AND HISTORY OBTAINED FROM CHART REVIEW. ANESTHESIA PLAN - SPINAL VS GA DISCUSSED WITH DAUGHTER/POA, NEREYDA EID, OVER THE PHONE, QUESTIONS ANSWERED, AND VERBAL CONSENT OBTAINED AND WITNESSED.
[2018-01-14] MEDS ORDERED: Acetaminophen IV 1,000 MG/100 ML INFUS..BTL IVPB SCH
[2018-01-14 04:24] LABS: Basophils # 0.1 K/mcL (0.0-0.2); Basophils % 0.4 %; Eosinophils # 0.3 K/mcL (0.0-0.6); Eosinophils % 2.6 %; Hematocrit 31.9 % (35.3-44.9); Hemoglobin 10.4 g/dL (11.5-15.4); Immature Granulocytes % 0.4 % (0-4); Lymphocytes # 3.4 K/mcL (0.6-4.6); Lymphocytes % 29.4 %; Mean Corpuscular HGB Conc 32.6 g/dL (31.6-35.5); Mean Corpuscular Hemoglobin 29.6 pg (28.0-33.3); Mean Corpuscular Volume 90.9 fL (83.0-100.0); Mean Platelet Volume 11.7 fL (9.4-12.4); Monocytes # 1.2 K/mcL (0.0-1.3); Monocytes % 10.8 %; Neutrophils # 6.4 K/mcL (1.6-8.9); Platelet Count 114 K/mcL (140-400); Red Blood Count 3.51 M/mcL (3.82-4.97); Red Cell Distribution Width 15.1 % (11.5-14.5); Segmented Neutrophils % 56.4 %
[2018-01-14 04:30] LABS: Prothrombin Time 11.6 Seconds (9.4-12.1)
[2018-01-14 04:42] LABS: BUN/Creatinine Ratio 21 (6-26); Blood Urea Nitrogen 19 mg/dL (8-23); Calcium 8.5 mg/dL (8.6-10.3); Carbon Dioxide 27 mEq/L (23-29); Chloride 105 mEq/L (98-107); Glucose 129 mg/dL (70-105); Magnesium 1.9 mg/dL (1.6-2.6); Osmolality,Calculated 284 (280-300); Potassium 4.3 mEq/L (3.5-5.1); Sodium 135 mEq/L (136-145); eGFR For Non-African Americans 59 (> 60)
[2018-01-14] MEDS ORDERED: Ondansetron 4 MG/2 ML VIAL ONE (07:16)
[2018-01-14] MEDS ORDERED: Lidocaine -MPF 4% 5 ML AMPUL ONE (07:16)
[2018-01-14] MEDS ORDERED: Lidocaine -MPF 2% 2 ML VIAL ONE (07:16)
[2018-01-14] MEDS ORDERED: *HR* Succinylcholine 200 MG/10 ML VIAL IVP ONE (07:16)
[2018-01-14] MEDS ORDERED: Dexamethasone 4 MG/ML VIAL ONE (07:16)
[2018-01-14] MEDS ORDERED: *HR* Propofol 200 MG/20 ML VIAL IVP ONE (07:16)
[2018-01-14] MEDS ORDERED: *HR* FentaNYL (PF) 100 MCG/2 ML VIAL ONE (07:16)
[2018-01-14] MEDS ORDERED: *HR* PHENYLEPHRINE 1,000 MCG/10 ML SYRINGE IVP ONE (07:19)
[2018-01-14] MEDS ORDERED: Propofol 500 MG/50 ML INFUS..BTL ONE (07:21)
[2018-01-14] MEDS: *HR* Heparin 5,000 UNIT/ML VIAL SQ SCH ×2 (07:27→20:08)
[2018-01-14] MEDS ORDERED: Lidocaine -MPF 1% 5 ML AMPUL ONE (07:31)
[2018-01-14] MEDS ORDERED: *HR* Morphine Sulfate/PF 10 MG/10 ML AMPUL ONE (07:32)
[2018-01-14] MEDS ORDERED: Clindamycin 900 MG/50 ML 900 MG/50 ML IV.SOLN IVPB ONE (08:09)
--- NOTE | 2018-01-14 08:29 | Anesthesia Procedures ---
Addendum entered and electronically signed by Sanjana Centeno CRNA 01/21/18 08:15: DOCUMENT KEEPS COMING BACK TO ME. TRIED MUTIPLE TIMES TO SIGN , THERE IS NO SIGN BUTTON FOR ME. Original Note: Date of Encounter: 01/14/18 Time of Encounter: 07:35 Procedures: Anesthesia - Epidural/Spinal Patient ID/Chart reviewed: Yes (DAUGHTER CONSENTED VIA PHONE ) Patient examined: Yes Consent Obtained: Yes Supplemental Oxygen: Nasal Cannula Supplemental Oxygen Rate (L/min): 2 Sedation: Fentanyl (mcg): 50 Site Prep: Aseptic Technique, Sterile prep and drape, Povidone-Iodine 1% Patient position: right lateral decubitus Local Anesthetic: Lidocaine 1% Amount of Local Anesthetic used: 3 Interspace Used: L4-L5 Blood: No CSF: Yes (SPINAL ) Paresthesia: No Spinal Needle Gauge: 24 (PENCAN 24G) Spinal Dose: SEE NOTE Procedure: SPINAL MEDS GIVEN : BUPIVICAINE 0.5% PLAIN PF 2.5ML +200MCG DURAMORPH Vitals + FHT's: Vital Signs - Last 8 Hours Temp Pulse Resp BP Pulse Ox 01/14/18 07:55 71 17 133/61 96 01/14/18 07:36 73 18 132/66 95 01/14/18 06:17 98.3 F 68 17 115/63 90 01/14/18 03:30 98.4 F 69 18 150/76 93 Intake and Output 01/13/18 01/14/18 01/14/18 23:59 07:59 15:59 Intake Total 100 / 100 Output Total 120 / 120 Balance -20 / -20 Intake: IV Fluids 100 / 100 Ofirmev 1,000 mg/100 ml 1,000 100 / 100 mg In 100 ml @ 400 mls/hr IVPB Q8HR [facility] Rx#:[id number] Output: Catheter 120 / 120
--- NOTE | 2018-01-14 08:36 | Orthopedic Operative Note ---
Date of procedure: 01/14/18 Pre-op diagnosis: right hip fracture Post-op diagnosis: same Procedure: Procedure: right hip open reduction intramedullary nail fixation Estimated blood loss: 50 cc Hardware: Metal: Synthes 10 x 130 TFN, 95 helical blade, 36 distal locking bolt Operative procedure: The patient was brought to the operating room and placed on the operating room table. After general anesthesia was administered the well leg was place in the well leg drake and the operative leg was placed in the fracture leg drake. All pressure points were padded appropriately. The operative extremity was prepped and draped in the sterile surgical fashion patient received IV antibiotic prior to skin incision. A standard direct lateral approach was made over the entry point of the greater trochanter, the incision was made through the skin and subcutaneous tissue hemostasis was obtained with Bovie cautery. Using careful sharp dissection the fascia was identified and incised, flouroscopic assistance was used to identify the entry point. The guidepin was placed at the entry point using fluroscopic assistance, it was over reamed with the proximal reamer. The nail was placed through the entry hole, across the fracture site into the distal fragment. the position was confirmed with fluroscopy. A guide pin was placed through the proximal locking guide from the lateral femur through the nail across the fracture site into the femoral head, it was over reamed with the reamer. The helical blade was placed over the guide pin through the nail into the femoral head, locked in place with the proximal locking bolt. Distal locking bolt was placed through the distal locking guide. position of hardware and fracture reduction found to be acceptable with fluroscopic assistance. The wound was irrigated. Fascia was closed with a running #2 PDS suture. The deep tissue was irrigated and closed deep with #1 PDS suture superficially with 0 PDS suture and skin was closed with Dermabond. The patient was placed in a sterile dressing The patient was extubated and transferred to the recovery room in stable condition. Anesthesia: spinal Surgeon: Earl Badillo Was there an optometrist assistant present: No Estimated blood loss (cc): 50 Condition: stable Disposition: PACU
[2018-01-14 09:19] LABS: Hematocrit 28.9 % (35.3-44.9); Hemoglobin 9.7 g/dL (11.5-15.4)
--- NOTE | 2018-01-14 09:24 | Anesthesia Evaluation Post Op ---
Date of Encounter: 01/14/18 Time of Encounter: 09:24 - Vital Signs Vital Signs: Vital Signs/O2 Sat, Most Current Temp Pulse Resp BP Pulse Ox 99.1 F 73 16 113/54 95 01/14/18 09:19 01/14/18 09:19 01/14/18 09:19 01/14/18 09:19 01/14/18 09:19 - Lungs Lungs: Clear Ascult./Percussion - Airway Airway: Non-obstructed - Cardiovascular Regular Rate, Baseline Rhythm - Mental Status Mental Status: Alert & Oriented, Answers Appropriately - Pain Pain Scale: 0 - Nausea Vomiting Nausea Vomiting: Not Present - Hydration Hydration: Tolerates oral liquids, Ice chips, Has not voided - Discharge PostOp Status: Transfer Patient to floor
[2018-01-14] MEDS ORDERED: Naloxone 0.4 MG/ML INJ IVP PRN ×2 (09:58)
[2018-01-14] MEDS ORDERED: Acetaminophen 325 MG TABLET PO PRN (09:58)
--- NOTE | 2018-01-14 12:15 | Internal Med Progress Note ---
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 (2) Hypertension Current Visit: No Status: Chronic (3) Closed right hip fracture Current Visit: Yes Status: Acute (4) Leukocytosis Current Visit: Yes Status: Acute (5) Atrial fibrillation Current Visit: Yes Status: Chronic (6) CAD (coronary artery disease) Current Visit: Yes Status: Chronic (7) Dementia Current Visit: Yes Status: Chronic - Time Spent with Patient Total time spent is greater than 50% in coordination of care (as documented) at patient's floor/unit and/or counseling patient: Internal Medicine: Result - Labs CBC & Chem 7: 01/14/18 09:03 01/14/18 03:59 Labs: Short CBC 01/14/18 01/14/18 Range/Units 03:59 09:03 WBC 11.4 H (4.3-11.1) K/mcL Hgb 10.4 L 9.7 L (11.5-15.4) g/dL Hct 31.9 L 28.9 L (35.3-44.9) % Plt Count 114 L (140-400) K/mcL Neutrophils # 6.4 (1.6-8.9) K/mcL BMP 01/14/18 03:59 Sodium 135 L Potassium 4.3 Chloride 105 Carbon Dioxide 27 BUN 19 Creatinine 0.91 Glucose 129 H Calcium 8.5 L - ABG Interpretation ABG results: PT/INR, D-dimer PT 11.6 Seconds (9.4-12.1) 01/14/18 03:59 - Impressions Impressions Hip X-Ray 01/14/18 07:49 IMPRESSION: 1. Status post ORIF left femur fracture with near anatomic alignment. D/ / Migel Feliz MD / Migel Feliz MD Interpreting Provider: Migel Feliz MD Fluoroscopy 01/14/18 08:10 IMPRESSION: Intraprocedural fluoroscopic spot images as above. See separate procedure report for more information. D/ / Juan Chang MD / Juan Chang MD Interpreting Provider: Juan Chang MD Hip X-Ray 01/14/18 08:10 IMPRESSION: Intraprocedural fluoroscopic spot images as above. See separate procedure report for more information. D/ / Juan Cahng MD / Juan Chang MD Interpreting Provider: Juan Chang MD Consult Discharge Plan - Plan Referrals: Rhonda Shay MD [Primary Care Provider] - - Attending Attestation I examined this patient and my medical decision-making was reviewed with the Resident Physician Dr Mon. I agree with the documented findings, disposition and treatment plan as described except to the extent set forth below. Ms Hernandez is admitted with right hip fx s/p right hip open reduction intramedullary nail fixation 01/14 asleep, back from or, family at bedside. comfortable appearing. has voiced no complaints to family. gen-asleep, appears stated age cv- reg rate and rhythm, normal s1,s2, no murmurs appreciated, no le edema, warm bl le lungs- ctabl, no wheezing, rhonchi or crackles, normal resp effort skin- right hip dressing clean dry intact neuro- asleep, did not wake as just back post op r hip fracture- s/p OR today, post op care as per ortho, SW working on placement paf- currently nsr, previously on eliquis stopped by pcp as no recurrence and BB which was dc due to hypotension, monitoring lytes, chadsvasc 5 but given falls cards rec and family agrees asa only best given risk vs benefit leukocytosis downtrending- thought to be likely reactive s/p fx as initially resolved without intervention fever documented 01/13 overnight with slight uptrend from 10s to 11s today -check ua, cxr dementia- high risk delirium post op and with pain meds, monitor and re orient as needed acute blood loss anemia 2/2 fracture- hgb check later today and cont to monitor post op for improvement in hgb, hemodynamically stable further diagnoses and treatment as documented by resident vte ppx sq heparin <Caitlyn Mon - Last Filed: 01/14/18 15:33> Hospitalist Progress Note - Encounter Date of Encounter: 01/14/18 Time of Encounter: 14:30 - Subjective Interval History: Patient seen and examined at bedside. Her home health aide is that bedside. P atient is awake and alert resting comfortably in bed. She reported that pain is well under control. She denies fever, chills, chest pain, shortness of breath. She has no complaints at this time. - Exam Vitals: Temp Pulse Resp BP Pulse Ox 99.1 F 64 16 112/55 95 01/14/18 09:35 01/14/18 09:35 01/14/18 09:35 01/14/18 09:35 01/14/18 09:35 Exam: Gen.: Vitals noted. No acute distress. alert HEENT: oropharynx clear, Normocephalic, atraumatic Neck: Supple. No adenopathy Cardiac: RRR, no murmur, +S1/S2, no BLE edema Pulmonary: CTA bilaterally, no wheezes, rales or rhonchi, equal chest expansion Abdomen: soft, nontender, Bowel sounds noted, no guarding MSK: right hip tenderness, ROM intact, no joint swelling noted Extremities: nontender calf, no cyanosis or clubbing Psych: Appropriate mood and behavior - Assessment and Plan (1) Closed right hip fracture Current Visit: Yes Status: Acute Assessment and Plan: Right hip fracture s/p fall today while pulling a drawer out today. Never had a fracture before. New comminuted intertrochanteric fracture of right femoral neck -s/p 01/14/2018 right hip open reduction intramedullary nail fixation by Orthopedic surgery -pain control with oxycodone -PT/OT after sugery -cardiac diet (2) Hypertension Current Visit: No Status: Chronic Assessment and Plan: History of HTN but taken off BP meds due to hypotension. BP stable. (3) Leukocytosis Current Visit: Yes Status: Acute Assessment and Plan: WBC 11.4 no clear evidence of infection. Etiology secondary to acute hip fracture CXR unremarkable WBC 10.5 (19.5) afebrile U/A: trace LE asymptomatic -will continue to monitor (4) Atrial fibrillation Current Visit: Yes Status: Chronic Assessment and Plan: history of A.fib. not on anticoagulation. stable (5) CAD (coronary artery disease) Current Visit: Yes Status: Chronic Assessment and Plan: Known CAD. Stable cardiology evaluated prior to orthopedic surgery (6) Dementia Current Visit: Yes Status: Chronic Assessment and Plan: History known dementia. Alert and oriented times to [address] She is at baseline and is not agitated or in acute distress. 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 Assessment and Plan: history of known hairy cell leukemia DVT Prophylaxis: heparin sq - Time Spent with Patient Total time spent is greater than 50% in coordination of care (as documented) at patient's floor/unit and/or counseling patient: Internal Medicine: Result - Labs CBC & Chem 7: 01/14/18 09:03 01/14/18 03:59 Labs: Short CBC 01/14/18 01/14/18 Range/Units 03:59 09:03 WBC 11.4 H (4.3-11.1) K/mcL Hgb 10.4 L 9.7 L (11.5-15.4) g/dL Hct 31.9 L 28.9 L (35.3-44.9) % Plt Count 114 L (140-400) K/mcL Neutrophils # 6.4 (1.6-8.9) K/mcL BMP 01/14/18 03:59 Sodium 135 L Potassium 4.3 Chloride 105 Carbon Dioxide 27 BUN 19 Creatinine 0.91 Glucose 129 H Calcium 8.5 L - ABG Interpretation ABG results: PT/INR, D-dimer PT 11.6 Seconds (9.4-12.1) 01/14/18 03:59 - Impressions Impressions Fluoroscopy 01/14/18 08:10 IMPRESSION: Intraprocedural fluoroscopic spot images as above. See separate procedure report for more information. D/ / Juan Chang MD / Juan Chang MD Interpreting Provider: Juan Chang MD Hip X-Ray 01/14/18 08:10 IMPRESSION: Intraprocedural fluoroscopic spot images as above. See separate procedure report for more information. 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, in remission (2) Hypertension Qualifiers: Hypertension type: essential hypertension Qualified Code(s): I10 - Essential (primary) hypertension (3) Closed right hip fracture Qualifiers: Encounter type: initial encounter Qualified Code(s): S72.001A - Fracture of unspecified part of neck of right femur, initial encounter for closed fracture (4) Leukocytosis Qualifiers: Leukocytosis type: unspecified Qualified Code(s): D72.829 - Elevated white blood cell count, unspecified (5) Atrial fibrillation Qualifiers: Atrial fibrillation type: paroxysmal Qualified Code(s): I48.0 - Paroxysmal atrial fibrillation (6) CAD (coronary artery disease) Qualifiers: Coronary Disease-Associated Artery/Lesion type: [place] artery [place] vs. transplanted heart: [place] heart Associated angina: without angina Qualified Code(s): I25.10 - Atherosclerotic heart disease of [place] coronary artery without angina pectoris (7) Dementia Qualifiers: Dementia type: Alzheimer's disease Alzheimer's disease onset: late-onset Dementia behavioral disturbance: without behavioral disturbance Qualified Code(s): G30.1 - Alzheimer's disease with late onset; F02.80 - Dementia in other diseases classified elsewhere without behavioral disturbance <Caitlyn Mon - Last Filed: 01/14/18 15:33> (1) Closed right hip fracture Qualifiers: Encounter type: initial encounter Qualified Code(s): S72.001A - Fracture of unspecified part of neck of right femur, initial encounter for closed fracture (2) Hypertension Qualifiers: Hypertension type: essential hypertension Qualified Code(s): I10 - Essential (primary) hypertension (3) Leukocytosis Qualifiers: Leukocytosis type: unspecified Qualified Code(s): D72.829 - Elevated white blood cell count, unspecified (4) Atrial fibrillation Qualifiers: Atrial fibrillation type: paroxysmal Qualified Code(s): I48.0 - Paroxysmal atrial fibrillation (5) CAD (coronary artery disease) Qualifiers: Coronary Disease-Associated Artery/Lesion type: [place] artery [place] vs. 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
--- NOTE | 2018-01-14 14:34 | Electrocardiograph Report ---
[place] [id number] Test Date: 2018-01-12 Pat Name: Vee Hernandez Department: EXAMC1 Room: [facility] Gender: F Title Curator: : [id number] Requested By: Elias Bond Order Number: [id number] Reading MD: Arslan Jhaveri Measurements Intervals [place] Rate: 75 P: OR: QRS: 15 QRSD: 113 T: 57 QT: 419 QTc: 468 Interpretive Statements Sinus rhythm with a PVC Borderline intraventricular conduction delay Low voltage, precordial leads Electronically Signed On 01-14-2018 14:33:05 EST by Arslan Jhaveri
[2018-01-14] MEDS ORDERED: D5% in Water 250 ML IVC SCH (14:58)
[2018-01-14] MEDS: Clindamycin 900 MG/50 ML 900 MG/50 ML IV.SOLN IVPB SCH (16:38)
[2018-01-14] MEDS: Acetaminophen IV 1,000 MG/100 ML INFUS..BTL IVPB SCH (16:39)
[2018-01-14 17:02] LABS: Bilirubin,Urine Small (Negative); Blood,Urine Moderate (Negative); Clarity,Urine Clear (Clear); Color,Urine Dark Yellow (Yellow); Glucose,Urine (UA) Normal (Normal); Ketones,Urine Negative (Negative); Leukocyte Esterase,Urine Trace (Negative); Nitrite,Urine Negative (Negative); PH,Urine 5.5 pH Units (5.0-8.0); Protein,Urine 30 mg/dL (Neg-Trace); Specific Gravity,Urine > 1.030 (1.010-1.025); Urobilinogen,Urine Normal (Normal)
[2018-01-14 17:15] LABS: Squamous Epithelial Cell,Urine Few per lpf (None-Few)
[2018-01-14 17:16] LABS: Hyaline Casts,Urine Few per lpf (None-Few)
[2018-01-14 17:17] LABS: Bacteria,Urine Few per hpf (None-Few); WBC,Urine 0-3 per hpf (0-3)
[2018-01-14] MEDS: Melatonin 3 MG TABLET PO SCH (20:07)
[2018-01-14 20:10] LABS: Hematocrit 28.6 % (35.3-44.9); Hemoglobin 9.4 g/dL (11.5-15.4)
[2018-01-15] MEDS: Acetaminophen IV 1,000 MG/100 ML INFUS..BTL IVPB SCH ×3 (00:40→18:14)
[2018-01-15] MEDS: Clindamycin 900 MG/50 ML 900 MG/50 ML IV.SOLN IVPB SCH (00:47)
[2018-01-15] MEDS: *HR* Heparin 5,000 UNIT/ML VIAL SQ SCH ×2 (06:34→18:13)
[2018-01-15 07:01] LABS: Basophils % 0.1 %; Hematocrit 27.5 % (35.3-44.9); Hemoglobin 9.3 g/dL (11.5-15.4); Immature Granulocytes % 0.4 % (0-4); Lymphocytes # 1.5 K/mcL (0.6-4.6); Lymphocytes % 12.3 %; Mean Corpuscular HGB Conc 33.8 g/dL (31.6-35.5); Mean Corpuscular Hemoglobin 30.6 pg (28.0-33.3); Mean Corpuscular Volume 90.5 fL (83.0-100.0); Mean Platelet Volume 11.7 fL (9.4-12.4); Monocytes % 8.5 %; Neutrophils # 9.6 K/mcL (1.6-8.9); Platelet Count 115 K/mcL (140-400); Red Blood Count 3.04 M/mcL (3.82-4.97); Red Cell Distribution Width 14.9 % (11.5-14.5); Segmented Neutrophils % 78.7 %
[2018-01-15 07:24] LABS: BUN/Creatinine Ratio 24 (6-26); Blood Urea Nitrogen 18 mg/dL (8-23); Calcium 8.5 mg/dL (8.6-10.3); Carbon Dioxide 24 mEq/L (23-29); Chloride 103 mEq/L (98-107); Glucose 129 mg/dL (70-105); Osmolality,Calculated 282 (280-300); Potassium 4.7 mEq/L (3.5-5.1); Sodium 134 mEq/L (136-145); eGFR For Non-African Americans > 60 (> 60)
[2018-01-15] MEDS: Aspirin Enteric Coated 81 MG Tablet PO SCH (09:01)
--- NOTE | 2018-01-15 10:13 | Internal Med Progress Note ---
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 (2) Hypertension Current Visit: No Status: Chronic (3) Closed right hip fracture Current Visit: Yes Status: Acute (4) Leukocytosis Current Visit: Yes Status: Acute (5) Atrial fibrillation Current Visit: Yes Status: Chronic (6) CAD (coronary artery disease) Current Visit: Yes Status: Chronic (7) Dementia Current Visit: Yes Status: Chronic - Time Spent with Patient Total time spent is greater than 50% in coordination of care (as documented) at patient's floor/unit and/or counseling patient: Internal Medicine: Result - Labs CBC & Chem 7: 01/15/18 06:51 01/15/18 06:51 Labs: Short CBC 01/14/18 01/15/18 Range/Units 19:49 06:51 WBC 12.2 H (4.3-11.1) K/mcL Hgb 9.4 L 9.3 L (11.5-15.4) g/dL Hct 28.6 L 27.5 L (35.3-44.9) % Plt Count 115 L (140-400) K/mcL Neutrophils # 9.6 H (1.6-8.9) K/mcL BMP 01/15/18 06:51 Sodium 134 L Potassium 4.7 Chloride 103 Carbon Dioxide 24 BUN 18 Creatinine 0.76 Glucose 129 H Calcium 8.5 L Urine 01/14/18 Range/Units 16:45 Urine Color Dark Yellow (Yellow) Urine Clarity Clear (Clear) Urine pH 5.5 (5.0-8.0) pH Units Ur Specific [place] > 1.030 H (1.010-1.025) Urine Protein 30 H (Neg-Trace) mg/dL Urine Glucose (UA) Normal (Normal) mg/dL - ABG Interpretation ABG results: PT/INR, D-dimer PT 11.6 Seconds (9.4-12.1) 01/14/18 03:59 - Impressions Impressions Hip X-Ray 01/14/18 07:49 IMPRESSION: 1. Status post ORIF left femur fracture with near anatomic alignment. D/ / Migel Feliz MD / Migel Feliz MD Interpreting Provider: Migel Feliz MD Chest X-Ray 01/14/18 14:41 IMPRESSION: 1. No active pulmonary disease. 2. Stable cardiomegaly without overt failure. D/ / Migel Feliz MD / Migel Feliz MD Interpreting Provider: Migel Feliz MD Consult Discharge Plan - Plan Referrals: Rhonda Shay MD [Primary Care Provider] - - Attending Attestation I examined this patient and my medical decision-making was reviewed with the Resident Physician Dr Mon. I agree with the documented findings, disposition and treatment plan as described except to the extent set forth below. Ms Hernandez is admitted with right hip fx s/p right hip open reduction intramedullary nail fixation 01/14. She has hx of dementia awake in chair, very pleasantly confused today. reoriented to hospital and hip fx s/p OR. Mild tolerable right hip pain. denies fevers, chills, nausea, emesis. she is unsure if she is having flatus. EAting and drinkgin without trouble. voiding trial today and states she is having no problem urinating. gen-awake, appears stated age cv- reg rate and rhythm, normal s1,s2, no murmurs appreciated, no le edema lungs- ctabl, no wheezing, rhonchi or crackles, normal resp effort on ra skin- right hip dressing clean dry intact neuro- AAO x person r hip fracture- s/p OR, post op care as per ortho, SW working on placement paf- currently nsr, previously on eliquis stopped by pcp as no recurrence and BB which was dc due to hypotension, monitoring lytes, chadsvasc 5 but given falls cards rec and family agrees asa only best given risk vs benefit leukocytosis stable- thought to be likely reactive s/p fx as initially resolved without intervention fever 01/13 pro[mted further work up--cxr neg ua suspicous for uti, ucx pending--history MDRO utis, old cxs reviewed,allergies reviewed- begin macrobid and await cx results dementia- high risk delirium post op and with pain meds, monitor and re orient as needed acute blood loss anemia 2/2 fracture- hgb stable, cont to monitor post op hemodynamically stable further diagnoses and treatment as documented by resident vte ppx sq heparin <Caitlyn Mon - Last Filed: 01/15/18 13:52> Hospitalist Progress Note - Encounter Date of Encounter: 01/15/18 Time of Encounter: 09:55 - Subjective Interval History: Patient seen and examined at bedside. The patient is alert and oriented to person only. She is more agitated today and is oriented to place and time which is normal for her since she has baseline dementia. Her daughter is that bedside. Patient is awake and alert resting comfortably in bed. Her only complaint is right hip pain. She denies fever, chills, chest pain, shortness of breath. Physical therapy has been in to see her. - Exam Vitals: Temp Pulse Resp BP Pulse Ox 98.3 F 77 18 127/72 93 01/15/18 07:59 01/15/18 07:59 01/15/18 07:59 01/15/18 07:59 01/15/18 07:59 Exam: Gen.: Vitals noted. No acute distress. AAOx1 person only HEENT: oropharynx clear, Normocephalic, atraumatic Cardiac: RRR, no murmur, +S1/S2, no BLE edema Pulmonary: CTA bilaterally, no wheezes, rales or rhonchi, equal chest expansion Abdomen: soft, nontender, Bowel sounds noted, no guarding MSK: right hip tender, ROM intact, no joint swelling noted Extremities: nontender calf, no cyanosis or clubbing Neuro: A&Ox1, moves all extremities, no focal deficits Psych: Appropriate mood and behavior, agitated - Assessment and Plan (1) Closed right hip fracture Current Visit: Yes Status: Acute Assessment and Plan: Right hip fracture s/p fall today while pulling a drawer out today. Never had a fracture before. New comminuted intertrochanteric fracture of right femoral neck -s/p 01/14/2018 right hip open reduction intramedullary nail fixation by Orthopedic surgery -pain control with oxycodone -PT/OT consulted -patient to be discharged to SNF for PT/OT -cardiac diet (2) Recurrent UTI Current Visit: No Status: Acute Assessment and Plan: WBC 12.2 , yesterday 11.4 no clear evidence of infection. Afebrile Etiology secondary to acute hip fracture consider also UTI CXR unremarkable WBC 10.5 (19.5) afebrile U/A: trace LE asymptomatic Urine culture- GRN -Urine culture sensitivity pending -based on prior sensitivity results and list of allergies patient started on Macrobid day 1 -Damon catheter removed today (3) Hypertension Current Visit: No Status: Chronic Assessment and Plan: History of HTN but taken off BP meds due to hypotension. BP stable. (4) Atrial fibrillation Current Visit: Yes Status: Chronic Assessment and Plan: history of A.fib. not on anticoagulation. 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 Stable cardiology evaluated prior to orthopedic surgery (7) Dementia Current Visit: Yes Status: Chronic Assessment and Plan: History known dementia. Alert and oriented times to person only. Disoriented to place and time. She is agitated today but in acute distress. There is a sitter in the room. DVT Prophylaxis: Heparin sq - Time Spent with Patient Total time spent is greater than 50% in coordination of care (as documented) at patient's floor/unit and/or counseling patient: Internal Medicine: Result - Labs CBC & Chem 7: 01/15/18 06:51 01/15/18 06:51 Labs: Short CBC 01/14/18 01/15/18 Range/Units 19:49 06:51 WBC 12.2 H (4.3-11.1) K/mcL Hgb 9.4 L 9.3 L (11.5-15.4) g/dL Hct 28.6 L 27.5 L (35.3-44.9) % Plt Count 115 L (140-400) K/mcL Neutrophils # 9.6 H (1.6-8.9) K/mcL BMP 01/15/18 06:51 Sodium 134 L Potassium 4.7 Chloride 103 Carbon Dioxide 24 BUN 18 Creatinine 0.76 Glucose 129 H Calcium 8.5 L Urine 01/14/18 Range/Units 16:45 Urine Color Dark Yellow (Yellow) Urine Clarity Clear (Clear) Urine pH 5.5 (5.0-8.0) pH Units Ur Specific [place] > 1.030 H (1.010-1.025) Urine Protein 30 H (Neg-Trace) mg/dL Urine Glucose (UA) Normal (Normal) mg/dL - ABG Interpretation ABG results: PT/INR, D-dimer PT 11.6 Seconds (9.4-12.1) 01/14/18 03:59 - Impressions Impressions Hip X-Ray 01/14/18 07:49 IMPRESSION: 1. Status post ORIF left femur fracture with near anatomic alignment. D/ / Migel Feliz MD / Migel Feliz MD Interpreting Provider: Migel Feliz MD Chest X-Ray 01/14/18 14:41 IMPRESSION: 1. No active pulmonary disease. 2. Stable cardiomegaly without overt failure. 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, in remission (2) Hypertension Qualifiers: Hypertension type: essential hypertension Qualified Code(s): I10 - Essential (primary) hypertension (3) Closed right hip fracture Qualifiers: Encounter type: initial encounter Qualified Code(s): S72.001A - Fracture of unspecified part of neck of right femur, initial encounter for closed fracture (4) Leukocytosis Qualifiers: Leukocytosis type: unspecified Qualified Code(s): D72.829 - Elevated white blood cell count, unspecified (5) Atrial fibrillation Qualifiers: Atrial fibrillation type: paroxysmal Qualified Code(s): I48.0 - Paroxysmal atrial fibrillation (6) CAD (coronary artery disease) Qualifiers: Coronary Disease-Associated Artery/Lesion type: [place] artery [place] vs. transplanted heart: [place] heart Associated angina: without angina Qualified Code(s): I25.10 - Atherosclerotic heart disease of [place] coronary artery without angina pectoris (7) Dementia Qualifiers: Dementia type: Alzheimer's disease Alzheimer's disease onset: late-onset Dementia behavioral disturbance: without behavioral disturbance Qualified Code(s): G30.1 - Alzheimer's disease with late onset; F02.80 - Dementia in other diseases classified elsewhere without behavioral disturbance <Caitlyn Mon - Last Filed: 01/15/18 13:52> (1) Closed right hip fracture Qualifiers: Encounter type: initial encounter Qualified Code(s): S72.001A - Fracture of unspecified part of neck of right femur, initial encounter for closed fracture (3) Hypertension Qualifiers: Hypertension type: essential hypertension Qualified Code(s): I10 - Essential (primary) hypertension (4) Atrial fibrillation Qualifiers: Atrial fibrillation type: paroxysmal Qualified Code(s): I48.0 - Paroxysmal atrial fibrillation (5) Hairy cell leukemia Qualifiers: Leukemia Active/Remission status: in remission Qualified Code(s): 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, in remission (6) CAD (coronary artery disease) Qualifiers: Coronary Disease-Associated Artery/Lesion type: [place] artery [place] vs. transplanted heart: [place] heart Associated angina: without angina Qualified Code(s): I25.10 - Atherosclerotic heart disease of [place] coronary artery without angina pectoris (7) Dementia Qualifiers: Dementia type: Alzheimer's disease Alzheimer's disease onset: late-onset Dementia behavioral disturbance: without behavioral disturbance Qualified Code(s): G30.1 - Alzheimer's disease with late onset; F02.80 - Dementia in other diseases classified elsewhere without behavioral disturbance
[2018-01-15] MEDS: *HR* OxyCODONE/APAP 5/325 TABLET PO PRN ×2 (10:35→20:30)
--- NOTE | 2018-01-15 10:56 | Orthopedics Progress Note ---
Date of Encounter: 01/15/18 Time of Encounter: 10:56 Subjective Principal diagnosis: Right Hip Fracture Interval history: Patient was seen this morning doing well without complaints. Afebrile vital signs stable. Operative extremity: Neurovascularly intact Dressing clean dry and intact Calves nontender Assessment and plan: Continue with postoperative care Objective Vital signs: Vital Signs Temp Pulse Resp BP Pulse Ox 01/15/18 07:59 98.3 F 77 18 127/72 93 01/15/18 03:00 98.0 F 72 15 108/67 88 01/14/18 23:00 98.3 F 77 16 117/71 91 01/14/18 19:05 98.2 F 79 15 114/59 91 01/14/18 15:57 97.8 F 67 14 122/66 98 01/14/18 13:45 61 103/68 97 01/14/18 12:45 59 110/72 100 01/14/18 11:45 62 109/65 96 01/14/18 11:15 62 113/64 99 Intake and Output 01/14/18 01/15/18 01/15/18 23:59 07:59 15:59 Intake Total 50 / 50 100 / 100 Output Total 250 / 250 Balance 50 / 50 -150 / -150 Intake: IV Fluids 50 / 50 100 / 100 Ofirmev 1,000 mg/100 ml 1,000 100 / 100 mg In 100 ml @ 400 mls/hr IVPB Q8HR [facility] Rx#:[id number] Cleocin Premix 900 MG/50 ML 900 50 / 50 mg In 50 ml @ 50 mls/hr IVPB Q8HR [facility] Rx#:[id number] Output: Urine 250 / 250 Other: Weight 61.5 kg Patient Weight 01/15/18 23:59 Weight 61.5 kg - Labs CBC & BMP: 01/15/18 06:51 01/15/18 06:51 Labs: Abnormal lab results WBC 12.2 K/mcL (4.3-11.1) H 01/15/18 06:51 RBC 3.04 M/mcL (3.82-4.97) L 01/15/18 06:51 Hgb 9.3 g/dL (11.5-15.4) L 01/15/18 06:51 Hct 27.5 % (35.3-44.9) L 01/15/18 06:51 RDW 14.9 % (11.5-14.5) H 01/15/18 06:51 Plt Count 115 K/mcL (140-400) L 01/15/18 06:51 Neutrophils # 9.6 K/mcL (1.6-8.9) H 01/15/18 06:51 Sodium 134 mEq/L (136-145) L 01/15/18 06:51 Glucose 129 mg/dL (70-105) H 01/15/18 06:51 Calcium 8.5 mg/dL (8.6-10.3) L 01/15/18 06:51 Ur Specific [place] > 1.030 (1.010-1.025) H 01/14/18 16:45 Urine Protein 30 mg/dL (Neg-Trace) H 01/14/18 16:45 Urine Blood Moderate (Negative) H 01/14/18 16:45 Urine Bilirubin Small (Negative) H 01/14/18 16:45 Ur Leukocyte Esterase Trace (Negative) H 01/14/18 16:45 Urine Microscopic RBC 5-15 per hpf (0-3) H 01/14/18 16:45 Ur Culture Indicated? YES (NO) A 01/14/18 16:45 Consult Discharge Plan - Plan Referrals: Rhonda Shay MD [Primary Care Provider] -
[2018-01-15] MEDS ORDERED: *HR* Metoprolol 5 MG/5 ML VIAL IVP ONE (14:53)
[2018-01-15] MEDS ORDERED: *HR* Metoprolol 5 MG/5 ML VIAL IVP PRN (15:07)
[2018-01-15 15:22] LABS: Hematocrit 28.6 % (35.3-44.9); Hemoglobin 9.4 g/dL (11.5-15.4)
[2018-01-15 15:42] LABS: Magnesium 1.8 mg/dL (1.6-2.6)
[2018-01-15 15:52] LABS: Troponin I < 0.03 ng/mL (< 0.04)
[2018-01-15] MEDS: Nitrofurantoin (BID) 100 MG CAPSULE PO SCH (18:13)
--- NOTE | 2018-01-15 19:42 | Event Note ---
Date of Encounter: 01/15/18 Time of Encounter: 15:00 was notified by the patient's nurse that the patient was tachycardic with heart rate was sustaining 169-170. Upon examination the patient was alert and no acute distress resting comfortably in bed. She was tachycardic with heart rate 170, however her blood pressure was 134 systolic. Stat vitals also showed that she was afebrile and oxygenating well. Orders were placed including Stat hemoglobin, magnesium,troponin, EKG. Initial EKG was concerning for sinus tachycardia vs atrial fibrillation. On examination the patient had cardiac exam of tachycardia, no murmurs. Lungs were clear to auscultation, no abdominal tenderness or guarding, no lower extremity edema. She was given one dose of 5 mg Lopressor. After which her heart rate improved to 80sand blood pressure remains stable. Her home health aide was at bedside the entire time. the patient's daughter was called and spoke with Dr. Gutierres who stated that the patient has had known paroxysmal atrial fibrillation however, blood pressure medications were stopped due to hypotension. Anticoagulation was stopped years ago due to atrial fibrillation resolving. The daughter stated that showed the patient to go back into atrial fibrillation she does not want anticoagulation. The risks and benefits were explained to her including stroke, bleeding, , disability. She stated clear understanding
[2018-01-15] MEDS: Melatonin 3 MG TABLET PO SCH (20:30)
[2018-01-16] MEDS: Acetaminophen IV 1,000 MG/100 ML INFUS..BTL IVPB SCH ×3 (00:03→16:43)
[2018-01-16 03:48] LABS: Basophils % 0.1 %; Eosinophils # 0.3 K/mcL (0.0-0.6); Eosinophils % 2.8 %; Hematocrit 24.5 % (35.3-44.9); Hemoglobin 8.3 g/dL (11.5-15.4); Immature Granulocytes % 0.9 % (0-4); Immature Platelets 7.6 % (1.1-6.1); Lymphocytes # 2.6 K/mcL (0.6-4.6); Lymphocytes % 25.5 %; Mean Corpuscular HGB Conc 33.9 g/dL (31.6-35.5); Mean Corpuscular Hemoglobin 31.1 pg (28.0-33.3); Mean Corpuscular Volume 91.8 fL (83.0-100.0); Monocytes # 1.1 K/mcL (0.0-1.3); Monocytes % 10.5 %; Platelet Count 120 K/mcL (140-400); Red Blood Count 2.67 M/mcL (3.82-4.97); Red Cell Distribution Width 15.1 % (11.5-14.5); Segmented Neutrophils % 60.2 %
[2018-01-16] MEDS: *HR* Heparin 5,000 UNIT/ML VIAL SQ SCH ×2 (06:29→17:56)
[2018-01-16] MEDS: Nitrofurantoin (BID) 100 MG CAPSULE PO SCH ×2 (08:57→16:29)
[2018-01-16] MEDS: Aspirin Enteric Coated 81 MG Tablet PO SCH (08:57)
--- NOTE | 2018-01-16 09:21 | Electrocardiograph Report ---
[address] [place], [place] [address] Test Date: 2018-01-15 Pat Name: Vee Hernandez Department: 114 Room: [facility] Gender: F Nurse Tech: MITZI : 1935 Requested By: Ronit Gomez Order Number: [id number] Reading MD: Barbi Fisher Measurements Intervals [place] Rate: 169 P: MD: 0 QRS: -7 QRSD: 92 T: 166 QT: 195 QTc: 287 Interpretive Statements SUPRAVENTRICULAR TACHYCARDIA LOW VOLTAGE PRECORDIAL LEADS NONSPECIFIC ST & T-WAVE ABNORMALITY Electronically Signed On 01-16-2018 9:19:49 EST by Barbi Fisher
--- NOTE | 2018-01-16 09:25 | Electrocardiograph Report ---
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
--- NOTE | 2018-01-16 10:55 | Internal Med Progress Note ---
<Caitlyn Mon - Last Filed: 01/16/18 13:10> Hospitalist Progress Note - Encounter Date of Encounter: 01/16/18 Time of Encounter: 10:30 - Subjective Interval History: Patient seen and examined at bedside. The patient is alert and oriented to person only. She is has baseline dementia. Her home health aid is at bedside. Patient is awake and alert resting comfortably in bed. She has no complaints today. She denies fever, chills, chest pain, shortness of breath, palpitations there were no overnight events.. - Exam Vitals: Temp Pulse Resp BP Pulse Ox 97.9 F 73 15 138/60 98 01/16/18 07:04 01/16/18 07:04 01/16/18 07:04 01/16/18 07:04 01/16/18 07:04 Exam: Gen.: Vitals noted. No acute distress. AAOx1 person only HEENT: oropharynx clear, Normocephalic, atraumatic Cardiac: RRR, no murmur, +S1/S2, no BLE edema Pulmonary: CTA bilaterally, no wheezes, rales or rhonchi, equal chest expansion Abdomen: soft, nontender, Bowel sounds noted, no guarding MSK: right hip tender, ROM intact, no joint swelling noted Extremities: nontender calf, no cyanosis or clubbing Neuro: moves all extremities, no focal deficits Psych: Appropriate mood and behavior - Assessment and Plan (1) Closed right hip fracture Current Visit: Yes Status: Acute Assessment and Plan: Right hip fracture s/p fall today while pulling a drawer out today. Never had a fracture before. New comminuted intertrochanteric fracture of right femoral neck -s/p 01/14/2018 right hip open reduction intramedullary nail fixation by Orthopedic surgery -pain control with oxycodone -PT/OT consulted -patient to be discharged to SNF for PT/OT -there needs to be no sitter for 24 hours for the patient be accepted to halfway home health nurse was notified and social work is to call daughter inform her. -cardiac diet (2) Recurrent UTI Current Visit: No Status: Acute Assessment and Plan: WBC 12.2 , yesterday 11.4 no clear evidence of infection. Afebrile Etiology secondary to acute hip fracture consider also UTI CXR unremarkable WBC 10 (19.5) afebrile U/A: trace LE asymptomatic Urine culture- GPC -Urine culture sensitivity pending -based on prior sensitivity results and list of allergies patient started on Macrobid day 2 -Damon catheter removed today (3) Hypertension Current Visit: No Status: Chronic Assessment and Plan: History of HTN but taken off BP meds due to hypotension. BP stable. (4) Atrial fibrillation Current Visit: Yes Status: Chronic Assessment and Plan: history of A.fib. not on anticoagulation. stable. Yesterday she had an event where she became tachycardic in the 130s. EKG demonstrated what was sinus tachycardia vs atrial fibrillation. Tachycardia resolved after metoprolol was given. Daughter stated that patient had history of proximal atrial fibrillation but was taken off anticoagulation years ago and is not on any blood pressure me dications due to hypotension. Daughter also stated that should the patient go into atrial fibrillation the patient is not to be anticoagulated. This conversation was discussed between the patient and Dr. Gutierres over the phone. 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 Stable cardiology evaluated prior to orthopedic surgery (7) Dementia Current Visit: Yes Status: Chronic Assessment and Plan: History known dementia. Alert and oriented times to person only. Disoriented to place and time. She is agitated today but in acute distress. There is a sitter in the room. (8) Anemia Current Visit: Yes Status: Acute Assessment and Plan: Anemia status post right hip surgery. hemoglobin 8.3, repeat hemoglobin this afternoon 8.5 no obvious active bleeding -hemoglobin continues to remain stable despite decreasing from yesterday. This is status post right hip surgery will continue to monitor. DVT Prophylaxis: Heparin sq - Time Spent with Patient Total time spent is greater than 50% in coordination of care (as documented) at patient's floor/unit and/or counseling patient: Internal Medicine: Result - Labs CBC & Chem 7: 01/16/18 10:30 01/15/18 06:51 Labs: Short CBC 01/15/18 01/16/18 Range/Units 15:05 03:16 WBC 10.0 (4.3-11.1) K/mcL Hgb 9.4 L 8.3 L (11.5-15.4) g/dL Hct 28.6 L 24.5 L (35.3-44.9) % Plt Count 120 L (140-400) K/mcL Neutrophils # 6.0 (1.6-8.9) K/mcL Cardiac Enzymes 01/15/18 01/15/18 01/16/18 Range/Units 15:05 20:45 03:16 Troponin I < 0.03 < 0.03 < 0.03 (< 0.04) ng/mL 01/16/18 Range/Units 08:38 Troponin I < 0.03 (< 0.04) ng/mL - ABG Interpretation ABG results: PT/INR, D-dimer PT 11.6 Seconds (9.4-12.1) 01/14/18 03:59 Consult Discharge Plan - Plan Referrals: Rhonda Shay MD [Primary Care Provider] - <Ronit Gomez - Last Filed: 01/16/18 16:38> Hospitalist Progress Note - Encounter Date of Encounter: 01/16/18 - Exam Vitals: Temp Pulse Resp BP Pulse Ox 97.8 F 65 14 116/62 97 01/16/18 10:56 01/16/18 10:56 01/16/18 10:56 01/16/18 10:56 01/16/18 10:56 - Assessment and Plan (1) Recurrent UTI Current Visit: No Status: Acute (2) 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 (3) Hypertension Current Visit: No Status: Chronic (4) Closed right hip fracture Current Visit: Yes Status: Acute (5) Atrial fibrillation Current Visit: Yes Status: Chronic (6) CAD (coronary artery disease) Current Visit: Yes Status: Chronic (7) Dementia Current Visit: Yes Status: Chronic (8) Anemia Current Visit: Yes Status: Acute - Time Spent with Patient Total time spent is greater than 50% in coordination of care (as documented) at patient's floor/unit and/or counseling patient: Internal Medicine: Result - Labs CBC & Chem 7: 01/16/18 10:30 01/15/18 06:51 Labs: Short CBC 01/16/18 01/16/18 Range/Units 03:16 10:30 WBC 10.0 (4.3-11.1) K/mcL Hgb 8.3 L 8.5 L (11.5-15.4) g/dL Hct 24.5 L 25.6 L (35.3-44.9) % Plt Count 120 L (140-400) K/mcL Neutrophils # 6.0 (1.6-8.9) K/mcL Cardiac Enzymes 01/15/18 01/16/18 01/16/18 Range/Units 20:45 03:16 08:38 Troponin I < 0.03 < 0.03 < 0.03 (< 0.04) ng/mL - ABG Interpretation ABG results: PT/INR, D-dimer PT 11.6 Seconds (9.4-12.1) 01/14/18 03:59 - Attending Attestation I examined this patient and my medical decision-making was reviewed with the Resident Physician Dr Mon. I agree with the documented findings, disposition and treatment plan as described except to the extent set forth below. Ms Hernandez is admitted with right hip fx s/p right hip open reduction intramedullary nail fixation 01/14. She has hx of dementia awake in bed, far less confused today, comfortable. + right hip pain and painn with rom. no cp, pressure, palpitations, sob. doesn't feel she needs o2. sitter at bedside. eating and drinking without difficulty. + gas, no bm recorded. voiding trial today. am ekg is at bedside, it is inaccurately dated as 8pm 01/15 but was preformed at 8 am today. NSR, no acute ischemic changes gen-awake, appears stated age cv- reg rate and rhythm, normal s1,s2, no murmurs appreciated, no le edema lungs- ctabl, no wheezing, rhonchi or crackles, normal resp effort on o2 nc skin- right hip dressing clean dry intact, no hematoma on palpation, no ecchymosis neuro- AAO x person, place r hip fracture- s/p OR, post op care as per ortho, to [facility] when medically stable paf hx- currently nsr, previously on eliquis stopped by pcp as no recurrence and BB which was dc due to hypotension, monitoring lytes, chadsvasc 5 but given falls cards rec and family agrees asa only best given risk vs benefit -01/15 evening she had episode of sustained tachy into 160s with normal bps and + palpitations- ekg obtained at that rate showed regular r to r intervals but no identifiable p waves- sinus tach vs afib. she responded well to one time iv lopressor and repeat ekg sinus tach. I personally discussed at that time with her daughter to confirm reported afib hx. If pt persists in afib she would be at risk of post op bleeding and already is anemic, I agree with her daughter and previous cards recs that risk of AC would outweigh benefit -has remained nsr, personally reviewed am ekg -cont tele monitoring, hgb monitoring and uti tx leukocytosiresolved likely reactive s/p fx and UTI --history MDRO utis, old cxs reviewed,allergies reviewed ucx confirmed uti and sensitivities reviewed- cont macrobid dementia- high risk delirium post op and with pain meds, monitor and re orient as needed acute blood loss anemia 2/2 fracture- hgb 1 gm drop today without eveidence of active bleeding, is on vte ppx sq hep, repeat hgb confirmed drop, she is not medically cleared for dc to snf as need to confirm hgb stability, cont to trend further diagnoses and treatment as documented by resident vte ppx sq heparin but may need to hold if hgb does not stabilize on it dispo- [facility] to [facility], cannot dc today due to hgb monitring and determination if able to go to ecf on vte ppx or not very unfortunately [facility] is not accepting patients after 5pm today, friday, as they are upgrading their computer system and not taking patients. I left message for her daughter Anyi to let her know that even when pt medically clears, which i expect may happen tomorrow, she will be unable to discharge. Awaiting call back. RN, SW and family aide all aware. <Caitlyn Mon - Last Filed: 01/16/18 13:10> (1) Closed right hip fracture Qualifiers: Encounter type: initial encounter Qualified Code(s): S72.001A - Fracture of unspecified part of neck of right femur, initial encounter for closed fracture (3) Hypertension Qualifiers: Hypertension type: essential hypertension Qualified Code(s): I10 - Essential (primary) hypertension (4) Atrial fibrillation Qualifiers: Atrial fibrillation type: paroxysmal Qualified Code(s): I48.0 - Paroxysmal atrial fibrillation (5) Hairy cell leukemia Qualifiers: Leukemia Active/Remission status: in remission Qualified Code(s): 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 transplanted heart: [place] heart Associated angina: without angina Qualified Code(s): I25.10 - Atherosclerotic heart disease of [place] coronary artery without angina pectoris (7) Dementia Qualifiers: Dementia type: Alzheimer's disease Alzheimer's disease onset: late-onset Dementia behavioral disturbance: without behavioral disturbance Qualified Code(s): G30.1 - Alzheimer's disease with late onset; F02.80 - Dementia in other diseases classified elsewhere without behavioral disturbance <Ronit Gomez - Last Filed: 01/16/18 16:38> (2) Hairy cell leukemia Qualifiers: Leukemia Active/Remission status: in remission Qualified Code(s): 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 [place] heart: [place] heart Associated angina: without angina Qualified Code(s): I25.10 - Atherosclerotic heart disease of [place] coronary artery without angina pectoris (7) Dementia Qualifiers: Dementia type: Alzheimer's disease Alzheimer's disease onset: late-onset Dementia behavioral disturbance: without behavioral disturbance Qualified Code(s): G30.1 - Alzheimer's disease with late onset; F02.80 - Dementia in other diseases classified elsewhere without behavioral disturbance
[2018-01-16 11:01] LABS: Hematocrit 25.6 % (35.3-44.9); Hemoglobin 8.5 g/dL (11.5-15.4)
[2018-01-16] MEDS ORDERED: Sennosides 8.6 MG TABLET PO ONE (15:30)
--- NOTE | 2018-01-16 16:20 | Electrocardiograph Report ---
[address] [address] Test Date: 2018-01-15 Pat Name: Vee Hernandez Department: 114 Room: [facility] Gender: F Director Of Donor Relations: : 1935 Requested By: Ronit Gomez Order Number: [id number] Reading MD: Barbi Fisher Measurements Intervals [place] Rate: 75 P: 55 IN: 238 QRS: -8 QRSD: 89 T: 35 QT: 386 QTc: 414 Interpretive Statements SINUS RHYTHM WITH FIRST DEGREE AV BLOCK NONSPECIFIC ST CHANGES Electronically Signed On 01-16-2018 16:18:59 EST by Barbi Fisher
[2018-01-16] MEDS: *HR* OxyCODONE/APAP 5/325 TABLET PO PRN ×2 (16:30→21:46)
[2018-01-16] MEDS: Melatonin 3 MG TABLET PO SCH (21:46)
[2018-01-17] MEDS: *HR* Heparin 5,000 UNIT/ML VIAL SQ SCH ×2 (05:14→16:13)
[2018-01-17] MEDS: *HR* OxyCODONE/APAP 5/325 TABLET PO PRN ×2 (05:14→22:23)
[2018-01-17 05:41] LABS: Basophils # 0.1 K/mcL (0.0-0.2); Basophils % 0.5 %; Eosinophils # 0.6 K/mcL (0.0-0.6); Eosinophils % 4.7 %; Hematocrit 26.5 % (35.3-44.9); Hemoglobin 8.8 g/dL (11.5-15.4); Immature Granulocytes % 0.4 % (0-4); Lymphocytes # 5.5 K/mcL (0.6-4.6); Lymphocytes % 44.4 %; Mean Corpuscular HGB Conc 33.2 g/dL (31.6-35.5); Mean Corpuscular Hemoglobin 30.3 pg (28.0-33.3); Mean Corpuscular Volume 91.4 fL (83.0-100.0); Mean Platelet Volume 11.6 fL (9.4-12.4); Monocytes # 1.3 K/mcL (0.0-1.3); Monocytes % 10.5 %; Neutrophils # 4.9 K/mcL (1.6-8.9); Nucleated Red Blood Cells 0.2 /100 WBC (0); Platelet Count 174 K/mcL (140-400); Red Cell Distribution Width 15.5 % (11.5-14.5); Segmented Neutrophils % 39.5 %
[2018-01-17] MEDS ORDERED: Acetaminophen 325 MG TABLET PO PRN (08:39)
[2018-01-17] MEDS: Aspirin Enteric Coated 81 MG Tablet PO SCH (08:46)
[2018-01-17] MEDS: Nitrofurantoin (BID) 100 MG CAPSULE PO SCH ×2 (08:46→16:13)
[2018-01-17] MEDS: Acetaminophen IV 1,000 MG/100 ML INFUS..BTL IVPB SCH ×2 (08:47)
--- NOTE | 2018-01-17 10:59 | Internal Med Progress Note ---
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 (3) Hypertension Current Visit: No Status: Chronic (4) Closed right hip fracture Current Visit: Yes Status: Acute (5) Atrial fibrillation Current Visit: Yes Status: Chronic (6) CAD (coronary artery disease) Current Visit: Yes Status: Chronic (7) Dementia Current Visit: Yes Status: Chronic (8) Anemia Current Visit: Yes Status: Acute - Time Spent with Patient Total time spent is greater than 50% in coordination of care (as documented) at patient's floor/unit and/or counseling patient: Internal Medicine: Result - Labs CBC & Chem 7: 01/17/18 05:14 01/15/18 06:51 Labs: Short CBC 01/17/18 Range/Units 05:14 WBC 12.5 H (4.3-11.1) K/mcL Hgb 8.8 L (11.5-15.4) g/dL Hct 26.5 L (35.3-44.9) % Plt Count 174 (140-400) K/mcL Neutrophils # 4.9 (1.6-8.9) K/mcL - ABG Interpretation ABG results: PT/INR, D-dimer PT 11.6 Seconds (9.4-12.1) 01/14/18 03:59 Consult Discharge Plan - Plan Referrals: Rhonda Shay MD [Primary Care Provider] - - Attending Attestation I examined this patient and my medical decision-making was reviewed with the Resident Physician Dr Mon. I agree with the documented findings, disposition and treatment plan as described except to the extent set forth below. Ms Hernandez is admitted with right hip fx s/p right hip open reduction intramedullary nail fixation 01/14. She has hx of dementia She has addl hx recurrent UTIs and is diagnosed this admission with UTI awake in chair, right hip pain tolerable, denies abd pain, dysuria, fevers or chills. states she is eating and drinking without any trouble. no bm recorded yet and she is unsure if she is passing gas. denies fatigue, lightheadedness or dizziness No family/friends present at this time, never received call back from pt daughter Anyi last evening. Pt unsure if she will be here today RN is going to try contacting [facility] today and our upper extremity surgeon SW to ensure they cont to refuse pt discharges today as pt is now medically stable gen-awake, appears stated age cv- reg rate and rhythm, normal s1,s2, no murmurs appreciated, no le edema lungs- ctabl, no wheezing, rhonchi or crackles, normal resp effort skin- right hip dressing clean dry intact, no hematoma on palpation, no ecchymosis neuro- AAO x person, reoriented to hosptial setting r hip fracture- s/p OR, post op care as per ortho, to [facility] when snf accepting patients on friday (currently not accepting patients over weekend), vte ppx hep sq at this time paf hx previously on eliquis stopped by pcp as no recurrence and BB which was dc due to hypotension, monitoring lytes, chadsvasc 5 but given falls cards rec and family agrees asa only best given risk vs benefit -01/15 evening she had episode of sustained tachy into 160s with normal bps and + palpitations- ekg obtained at that rate showed regular r to r intervals but no identifiable p waves- sinus tach vs afib. she responded well to one time iv lopressor and repeat ekg sinus tach. I personally discussed at that time with her daughter to confirm reported afib hx. If pt persists in afib she would be at risk of post op bleeding and already is anemic, I agree with her daughter and previous cards recs that risk of AC would outweigh benefit -has remained nsr -cont tele monitoring, hgb monitoring and uti tx leukocytosis resolved 01/16 likely reactive s/p fx and UTI 01/17 slight increase but afebrile and clincially well appearing history MDRO utis, old cxs reviewed,allergies reviewed ucx confirmed uti and sensitivities reviewed- cont macrobid to complete course -monitor wbcs and for fever, CXR most recently neg and no pulm symptoms dementia- high risk delirium post op and with pain meds, monitor and re orient as needed acute blood loss anemia 2/2 fracture- hgb is now finally uptrending, 8.8 today, is on vte ppx sq hep, further diagnoses and treatment as documented by resident dispo- accepted to [facility], is now MEDICALLY CLEAR FOR DC BARRIER TO DISCHARGE IS ECF NOT ACCEPTING PTS THIS WEEKEND--RN is going to reach out to [facility] and upper extremity surgeon SW today to assure there is no change in this, unfortunately will not be dc til Friday if they refuse to take pt attempted to update family last night- VM left with daughter- did not receive call back, no visitor spresent at this time, RN will update visitors today and team is available for answering questions as needed <Caitlyn Mon - Last Filed: 01/17/18 14:21> Hospitalist Progress Note - Encounter Date of Encounter: 01/17/18 Time of Encounter: 11:00 - Subjective Interval History: Patient seen and examined at bedside. The patient is alert and resting in bed comfortably. She has no complaints today. She denies fever, chills, chest pain, shortness of breath, palpitations. There were no overnight events. Her nurse reported that she tried calling [facility] to see the patient could be discharged however due to the [facility] doing a computer update transferred to the facility unable to be done. - Exam Vitals: Temp Pulse Resp BP Pulse Ox 98.8 F 93 16 117/68 95 01/17/18 06:49 01/17/18 06:49 01/17/18 06:49 01/17/18 06:49 01/17/18 06:49 Exam: Gen.: Vitals noted. No acute distress. AAOx1 person only HEENT: oropharynx clear, Normocephalic, atraumatic Cardiac: RRR, no murmur, +S1/S2, no BLE edema Pulmonary: CTA bilaterally, no wheezes, rales or rhonchi, equal chest expansion Abdomen: soft, nontender, Bowel sounds noted, no guarding MSK: right hip tender, no joint swelling noted Extremities: nontender calf, no cyanosis or clubbing Neuro: moves all extremities, no focal deficits Psych: Appropriate mood and behavior - Assessment and Plan (1) Closed right hip fracture Current Visit: Yes Status: Acute Assessment and Plan: Right hip fracture s/p fall today while pulling a drawer out today. Never had a fracture before. New comminuted intertrochanteric fracture of right femoral neck -s/p 01/14/2018 right hip open reduction intramedullary nail fixation by Orthopedic surgery -pain control with oxycodone -PT/OT consulted -patient to be discharged to SNF for PT/OT. [facility] is doing a computer update this and cannot accept patients until Friday. We will plan for discharge on Friday. -cardiac diet (2) Recurrent UTI Current Visit: No Status: Acute Assessment and Plan: WBC 12.5, Afebrile Etiology secondary to acute hip fracture consider also UTI. 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 CXR unremarkable U/A: trace LE asymptomatic Urine culture- GPC. Sensitive to Macrobid appropriate urine output -Continue Macrobid day 3 (3) Anemia Current Visit: Yes Status: Acute Assessment and Plan: Anemia status post right hip surgery. hemoglobin 8.8, yesterday 8.3 no obvious active bleeding -hemoglobin continues to remain stable. will continue to monitor. -Patient is acceptable for discharge as her hemoglobin is continuing to remain stable which was what was holding her back from discharge previously. (4) Hypertension Current Visit: No Status: Chronic Assessment and Plan: History of HTN but taken off BP meds due to hypotension. BP stable. (5) Atrial fibrillation Current Visit: Yes Status: Chronic Assessment and Plan: history of A.fib. not on anticoagulation. stable. Yesterday she had an event where she became tachycardic in the 130s. EKG demonstrated what was sinus tachycardia vs atrial fibrillation. Tachycardia resolved after metoprolol was given. Daughter stated that patient had history of proximal atrial fibrillation but was taken off anticoagulation years ago and is not on any blood pressure medications due to hypotension. Daughter also stated that should the patient go into atrial fibrillation the patient is not to be anticoagulated. This conversation was discussed between the patient and Dr. Gutierres over the phone. 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 Stable cardiology evaluated prior to orthopedic surgery (8) Dementia Current Visit: Yes Status: Chronic Assessment and Plan: History known dementia. Alert and oriented times to person only. Disoriented to place and time. She is agitated today but in acute distress. There is a sitter in the room. DVT Prophylaxis: Heparin sq - Time Spent with Patient Total time spent is greater than 50% in coordination of care (as documented) at patient's floor/unit and/or counseling patient: Internal Medicine: Result - Labs CBC & Chem 7: 01/17/18 05:14 01/15/18 06:51 Labs: Short CBC 01/16/18 01/17/18 Range/Units 10:30 05:14 WBC 12.5 H (4.3-11.1) K/mcL Hgb 8.5 L 8.8 L (11.5-15.4) g/dL Hct 25.6 L 26.5 L (35.3-44.9) % Plt Count 174 (140-400) K/mcL Neutrophils # 4.9 (1.6-8.9) K/mcL - ABG Interpretation ABG results: PT/INR, D-dimer PT 11.6 Seconds (9.4-12.1) 01/14/18 03:59 ____ <Ronit Gomez - Last Filed: 01/17/18 13:32> (2) Hairy cell leukemia Qualifiers: Leukemia Active/Remission status: in remission Qualified Code(s): 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, in remission (3) Hypertension Qualifiers: Hypertension type: essential hypertension Qualified Code(s): I10 - Essential (primary) hypertension (4) Closed right hip fracture Qualifiers: Encounter type: initial encounter Qualified Code(s): S72.001A - Fracture of unspecified part of neck of right femur, initial encounter for closed fracture (5) Atrial fibrillation Qualifiers: Atrial fibrillation type: paroxysmal Qualified Code(s): I48.0 - Paroxysmal atrial fibrillation (6) CAD (coronary artery disease) Qualifiers: Coronary Disease-Associated Artery/Lesion type: [place] artery [place] vs. transplanted heart: [place] heart Associated angina: without angina Qualified Code(s): I25.10 - Atherosclerotic heart disease of [place] coronary artery w ithout angina pectoris (7) Dementia Qualifiers: Dementia type: Alzheimer's disease Alzheimer's disease onset: late-onset Dementia behavioral disturbance: without behavioral disturbance Qualified Code(s): G30.1 - Alzheimer's disease with late onset; F02.80 - Dementia in other diseases classified elsewhere without behavioral disturbance <Caitlyn Mon - Last Filed: 01/17/18 14:21> (1) Closed right hip fracture Qualifiers: Encounter type: initial encounter Qualified Code(s): S72.001A - Fracture of unspecified part of neck of right femur, initial encounter for closed fracture (4) Hypertension Qualifiers: Hypertension type: essential hypertension Qualified Code(s): I10 - Essential (primary) hypertension (5) Atrial fibrillation Qualifiers: Atrial fibrillation type: paroxysmal Qualified Code(s): I48.0 - Paroxysmal atrial fibrillation (6) Hairy cell leukemia Qualifiers: Leukemia Active/Remission status: in remission Qualified Code(s): C91.41 - H airy cell leukemia, in remission (7) CAD (coronary artery disease) Qualifiers: Coronary Disease-Associated Artery/Lesion type: [place] artery [place] vs. tra nsplanted heart: [place] heart Associated angina: without angina Qualified Code(s): I25.10 - Atherosclerotic heart disease of [place] coronary artery without angina pectoris (8) Dementia Qualifiers: Dementia type: Alzheimer's disease Alzheimer's disease onset: late-onset Dementia behavioral disturbance: without behavioral disturbance Qualified Code(s): G30.1 - Alzheimer's disease with late onset; F02.80 - Dementia in other diseases classified elsewhere without behavioral disturbance
[2018-01-17 16:51] LABS: Bilirubin,Urine Small (Negative); Blood,Urine Negative (Negative); Clarity,Urine Clear (Clear); Glucose,Urine (UA) Normal (Normal); Ketones,Urine Trace mg/dL (Negative); Leukocyte Esterase,Urine Small (Negative); Nitrite,Urine Negative (Negative); PH,Urine 5.5 pH Units (5.0-8.0); Protein,Urine Trace mg/dL (Neg-Trace); Specific Gravity,Urine 1.026 (1.010-1.025); Urobilinogen,Urine Normal (Normal)
[2018-01-17 16:55] LABS: Hyaline Casts,Urine None Seen per lpf (None-Few); Squamous Epithelial Cell,Urine Many per lpf (None-Few)
[2018-01-17 17:13] LABS: Color,Urine Amber (Yellow)
[2018-01-17 17:16] LABS: Bacteria,Urine Few per hpf (None-Few); RBC,Urine 0-3 per hpf (0-3); Renal Epithelial Cells,Urine Few per hpf (None-Few)
[2018-01-17] MEDS: Melatonin 3 MG TABLET PO SCH (20:32)
[2018-01-17] MEDS: 0.9 % Sodium Chloride 1,000 ML IVC SCH (20:56)
[2018-01-18 05:30] LABS: Basophils % 0.4 %; Eosinophils # 0.4 K/mcL (0.0-0.6); Eosinophils % 3.8 %; Hematocrit 23.3 % (35.3-44.9); Hemoglobin 7.7 g/dL (11.5-15.4); Immature Granulocytes % 0.6 % (0-4); Lymphocytes # 3.4 K/mcL (0.6-4.6); Lymphocytes % 34.9 %; Mean Corpuscular Hemoglobin 30.6 pg (28.0-33.3); Mean Corpuscular Volume 92.5 fL (83.0-100.0); Mean Platelet Volume 11.2 fL (9.4-12.4); Monocytes # 1.1 K/mcL (0.0-1.3); Monocytes % 11.6 %; Neutrophils # 4.7 K/mcL (1.6-8.9); Nucleated Red Blood Cells 0.4 /100 WBC (0); Platelet Count 180 K/mcL (140-400); Red Blood Count 2.52 M/mcL (3.82-4.97); Red Cell Distribution Width 15.7 % (11.5-14.5); Segmented Neutrophils % 48.7 %
[2018-01-18 05:50] LABS: Alanine Aminotransferase 19 Units/L (7-52); Albumin 2.8 g/dL (3.5-5.7); Albumin/Globulin Ratio 1.3 (1.1-2.2); Alkaline Phosphatase 57 Units/L (34-104); Aspartate Amino Transferase 32 Units/L (13-39); BUN/Creatinine Ratio 32 (6-26); Bilirubin,Total 0.7 mg/dL (0.3-1.0); Blood Urea Nitrogen 17 mg/dL (8-23); Carbon Dioxide 24 mEq/L (23-29); Chloride 106 mEq/L (98-107); Globulin 2.2 g/dL (2.4-3.5); Glucose 110 mg/dL (70-105); Osmolality,Calculated 284 (280-300); Potassium 3.8 mEq/L (3.5-5.1); Sodium 136 mEq/L (136-145); eGFR For Non-African Americans > 60 (> 60)
[2018-01-18] MEDS: *HR* Heparin 5,000 UNIT/ML VIAL SQ SCH (05:51)
--- NOTE | 2018-01-18 06:07 | Event Note ---
Date of Encounter: 01/18/18 Time of Encounter: 05:50 Alerted by pts. nurse JOHN Brewer that the pts. Hgb was 7.7 this morning at 05:02. Previous was 8.8 on 01/17/18. Nurse instructed to contact pts. daughter to obtain consent for transfusion d/t pt. being unable to do so. Transfusion ordered for 2 units based on pts. type and screen on 01/12. Pts. H&H should be ordered as timed once transfusions are complete per timing protocol. Pt. to be monitored closely.
[2018-01-18] MEDS ORDERED: 0.9 % Sodium Chloride 250 ML ONE ×2 (06:34→13:02)
[2018-01-18] MEDS: Nitrofurantoin (BID) 100 MG CAPSULE PO SCH ×2 (08:01→15:50)
[2018-01-18] MEDS: Aspirin Enteric Coated 81 MG Tablet PO SCH (08:02)
[2018-01-18] MEDS: *HR* OxyCODONE/APAP 5/325 TABLET PO PRN ×3 (09:13→21:28)
[2018-01-18] MEDS ORDERED: Bisacodyl 10 MG RECTAL SUPPOSITORY RC PRN (10:49)
--- NOTE | 2018-01-18 10:55 | Internal Med Progress Note ---
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 (3) Hypertension Current Visit: No Status: Chronic (4) Closed right hip fracture Current Visit: Yes Status: Acute (5) Atrial fibrillation Current Visit: Yes Status: Chronic (6) CAD (coronary artery disease) Current Visit: Yes Status: Chronic (7) Dementia Current Visit: Yes Status: Chronic (8) Anemia Current Visit: Yes Status: Acute - Time Spent with Patient Total time spent is greater than 50% in coordination of care (as documented) at patient's floor/unit and/or counseling patient: Internal Medicine: Result - Labs CBC & Chem 7: 01/18/18 05:02 01/18/18 05:02 Labs: Short CBC 01/18/18 Range/Units 05:02 WBC 9.6 (4.3-11.1) K/mcL Hgb 7.7 L (11.5-15.4) g/dL Hct 23.3 L (35.3-44.9) % Plt Count 180 (140-400) K/mcL Neutrophils # 4.7 (1.6-8.9) K/mcL BMP 01/18/18 05:02 Sodium 136 Potassium 3.8 Chloride 106 Carbon Dioxide 24 BUN 17 Creatinine 0.53 L Glucose 110 H Calcium 8.0 L Liver Function 01/18/18 Range/Units 05:02 Total Bilirubin 0.7 (0.3-1.0) mg/dL AST 32 (13-39) Units/L ALT 19 (7-52) Units/L Alkaline Phosphatase 57 (34-104) Units/L Albumin 2.8 L (3.5-5.7) g/dL Urine 01/17/18 Range/Units 16:25 Urine Color Mera A (Yellow) Urine Clarity Clear (Clear) Urine pH 5.5 (5.0-8.0) pH Units Ur Specific [place] 1.026 H (1.010-1.025) Urine Protein Trace (Neg-Trace) mg/dL Urine Glucose (UA) Normal (Normal) mg/dL - ABG Interpretation ABG results: PT/INR, D-dimer PT 11.6 Seconds (9.4-12.1) 01/14/18 03:59 Consult Discharge Plan - Plan Referrals: Rhonda Shay MD [Primary Care Provider] - - Attending Attestation I examined this patient and my medical decision-making was reviewed with the Resident Physician Dr Mon. I agree with the documented findings, disposition and treatment plan as described except to the extent set forth below. Ms Hernandez is admitted with right hip fx s/p right hip open reduction intramedullary nail fixation 01/14. She has hx of dementia She has addl hx recurrent UTIs and is diagnosed this admission with UTI. Post op anemia on pharm vte ppx awake in bed, no family at bedside. no cp, palpitations, lightheadedness or dizziness. + right hip pain, tolerable, no abd pain, eating and drinking without difficulty. no bm hgb to 7.7 this morning, night team contacted Dr Badillo re prbc (hx splenectomy) and also d/w her daughter. consent given for transfusion. I called her daughter jason and updated her to today's plan, no dc today, serial hgbs after blood, and holdng heparin vte ppx given inability to stabilize hgb on it. she agrees and scds will be placed. gen-awake, appears stated age cv- reg rate and rhythm, normal s1,s2, no murmurs appreciated, no le edema lungs- ctabl, no wheezing, rhonchi or crackles, normal resp effort on ra skin- right hip dressing clean dry intact, no hematoma on palpation neuro- AAO x person r hip fracture- s/p OR, post op care as per ortho, to [facility] accepting patients on friday (currently not accepting patients over weekend), vte ppx with scds now, Dr Badillo is aware of prbc need paf hx previously on eliquis stopped by pcp as no recurrence and BB which was dc due to hypotension, monitoring lytes, chadsvasc 5 but given falls cards rec and family agrees asa only best given risk vs benefit -01/15 evening she had episode of sustained tachy into 160s with normal bps and + palpitations- ekg obtained at that rate showed regular r to r intervals but no identifiable p waves- sinus tach vs afib. she responded well to one time iv lopressor and repeat ekg sinus tach. I personally discussed at that time with her daughter to confirm reported afib hx. If pt persists in afib she would be at risk of post op bleeding and already is anemic, I agree with her daughter and previous cards recs that risk of AC would outweigh benefit -has remained nsr -cont tele monitoring, hgb monitoring and uti tx leukocytosis resolved 01/16 likely reactive s/p fx and UTI 01/17 slight increase now resolved history MDRO utis, old cxs reviewed,allergies reviewed ucx confirmed uti and sensitivities reviewed- cont macrobid to complete course -monitor wbcs and for fever, CXR most recently neg and no pulm symptoms dementia- high risk delirium post op and with pain meds, monitor and re orient as needed acute blood loss anemia 2/2 fracture- hgb decrease again to 7.7 this morning, overnight team held d/w Dr Badillo, and pt daughter, decision made to transfuse (she has had splenectomy and risks were discussed by night team with daughter per documentation), monitor hgb after transfusion, I personally updated daughter as well this morning, given risk v benefit now holding heparin sq vte ppx and scds placed, she is in agreement with this plan further diagnoses and treatment as documented by resident dispo- accepted [facility],hopeful for hgb stabilization soon and to [facility] when med clear <Caitlyn Mon - Last Filed: 01/18/18 14:45> Hospitalist Progress Note - Encounter Date of Encounter: 01/18/18 Time of Encounter: 10:54 - Subjective Interval History: Patient seen and examined at bedside. The patient is alert and resting in bed comfortably. She has no complaints today. She denies fever, chills, chest pain, shortness of breath, palpitations. Overnight she had a decrease in hemoglobin to 7.7 from 8.8. She was ordered 2 units packed red blood cells and IV fluids. She is still currently getting the blood and IV fluids have now been stopped. She is not had a bowel movement yet so a rectal suppository has been ordered. - Exam Vitals: Temp Pulse Resp BP Pulse Ox 98.4 F 90 16 133/71 92 01/18/18 10:05 01/18/18 10:05 01/18/18 10:05 01/18/18 10:05 01/18/18 10:05 Exam: Gen.: Vitals noted. No acute distress. AAOx1 person only HEENT: oropharynx clear, Normocephalic, atraumatic Cardiac: RRR, no murmur, +S1/S2, no BLE edema Pulmonary: CTA bilaterally, no wheezes, rales or rhonchi, equal chest expansion Abdomen: soft, left lower quadrant tender, Bowel sounds noted, no guarding MSK: right hip tender, no joint swelling noted Extremities: nontender calf, no cyanosis or clubbing Neuro: moves all extremities, no focal deficits Psych: Appropriate mood and behavior - Assessment and Plan (1) Closed right hip fracture Current Visit: Yes Status: Acute Assessment and Plan: Right hip fracture s/p fall today while pulling a drawer out today. Never had a fracture before. New comminuted intertrochanteric fracture of right femoral neck -s/p 01/14/2018 right hip open reduction intramedullary nail fixation by Orthopedic surgery -pain control with oxycodone -PT/OT consulted -patient to be discharged to SNF for PT/OT. [facility] is doing a computer update this and cannot accept patients until Friday. We will plan for discharge on Friday. -cardiac diet (2) Recurrent UTI Current Visit: No Status: Acute Assessment and Plan: WBC 12.5, Afebrile Etiology secondary to acute hip fracture consider also UTI. 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 CXR unremarkable U/A: trace LE asymptomatic Urine culture- GPC. Sensitive to Macrobid appropriate urine output -Continue Macrobid day 4 (3) Anemia Current Visit: Yes Status: Acute Assessment and Plan: Anemia status post right hip surgery. hemoglobin 7.7, yesterday 8.8 no obvious active bleeding -Last night hemoglobin was noted to be decreased at 7.7 so patient was ordered to be transfused 2 units PRBC. Patient still currently being transfused. Dr. Badillo the orthopedic surgeon was called and notified and he agreed to hold hepa rin for DVT prophylaxis. -repeat hemoglobin after transfusion complete (4) Hypertension Current Visit: No Status: Chronic Assessment and Plan: History of HTN but taken off BP meds due to hypotension. BP stable. (5) Atrial fibrillation Current Visit: Yes Status: Chronic Assessment and Plan: history of A.fib. not on anticoagulation. stable. Yesterday she had an event where she became tachycardic in the 130s. EKG demonstrated what was sinus tachycardia vs atrial fibrillation. Tachycardia resolved after metoprolol was given. Daughter stated that patient had history of proximal atrial fibrillation but was taken off anticoagulation years ago and is not on any blood pressure medications due to hypotension. Daughter also stated that should the patient go into atrial fibrillation the patient is not to be anticoagulated. This conversation was discussed between the patient and Dr. Gutierres over the phone. 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 Stable cardiology evaluated prior to orthopedic surgery (8) Dementia Current Visit: Yes Status: Chronic Assessment and Plan: History known dementia. Alert and oriented times to person only. She is no acute distress. DVT Prophylaxis: SCD due to decreased hemoglobin concerning for bleeding. - Time Spent with Patient Total time spent is greater than 50% in coordination of care (as documented) at patient's floor/unit and/or counseling patient: Internal Medicine: Result - Labs CBC & Chem 7: 01/18/18 05:02 01/18/18 05:02 Labs: Short CBC 01/18/18 Range/Units 05:02 WBC 9.6 (4.3-11.1) K/mcL Hgb 7.7 L (11.5-15.4) g/dL Hct 23.3 L (35.3-44.9) % Plt Count 180 (140-400) K/mcL Neutrophils # 4.7 (1.6-8.9) K/mcL BMP 01/18/18 05:02 Sodium 136 Potassium 3.8 Chloride 106 Carbon Dioxide 24 BUN 17 Creatinine 0.53 L Glucose 110 H Calcium 8.0 L Liver Function 01/18/18 Range/Units 05:02 Total Bilirubin 0.7 (0.3-1.0) mg/dL AST 32 (13-39) Units/L ALT 19 (7-52) Units/L Alkaline Phosphatase 57 (34-104) Units/L Albumin 2.8 L (3.5-5.7) g/dL Urine 01/17/18 Range/Units 16:25 Urine Color [place]era A (Yellow) Urine Clarity Clear (Clear) Urine pH 5.5 (5.0-8.0) pH Units Ur Specific [place] 1.026 H (1.010-1.025) Urine Protein Trace (Neg-Trace) mg/dL Urine Glucose (UA) Normal (Normal) mg/dL - ABG Interpretation ABG results: PT/INR, D-dimer PT 11.6 Seconds (9.4-12.1) 01/14/18 03:59 <Ronit Gomez - Last Filed: 01/18/18 13:16> (2) Hairy cell leukemia Qualifiers: Leukemia Active/Remission status: in remission Qualified Code(s): 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, in remission (3) Hypertension Qualifiers: Hypertension type: essential hypertension Qualified Code(s): I10 - Essential (primary) hypertension (4) Closed right hip fracture Qualifiers: Encounter type: initial encounter Qualified Code(s): S72.001A - Fracture of unspecified part of neck of right femur, initial encounter for closed fracture (5) Atrial fibrillation Qualifiers: Atrial fibrillation type: paroxysmal Qualified Code(s): I48.0 - Paroxysmal atrial fibrillation (6) CAD (coronary artery disease) Qualifiers: Coronary Disease-Associated Artery/Lesion type: [place] artery [place] vs. transplanted heart: [place] heart Associated angina: without angina Qualified Code(s): I25.10 - Atherosclerotic heart disease of [place] coronary artery without angina pectoris (7) Dementia Qualifiers: Dementia type: Alzheimer's disease Alzheimer's disease onset: late-onset Dementia behavioral disturbance: without behavioral disturbance Qualified Code(s): G30.1 - Alzheimer's disease with late onset; F02.80 - Dementia in other diseases classified elsewhere without behavioral disturbance <Caitlyn Mon - Last Filed: 01/18/18 14:45> (1) Closed right hip fracture Qualifiers: Encounter type: initial encounter Qualified Code(s): S72.001A - Fracture of unspecified part of neck of right femur, initial encounter for closed fracture (4) Hypertension Qualifiers: Hypertension type: essential hypertension Qualified Code(s): I10 - Essential (primary) hypertension (5) Atrial fibrillation Qualifiers: Atrial fibrillation type: paroxysmal Qualified Code(s): I48.0 - Paroxysmal atrial fibrillation (6) Hairy cell leukemia Qualifiers: Leukemia Active/Remission status: in remission Qualified Code(s): 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, in remission (7) CAD (coronary artery disease) Qualifiers: Coronary Disease-Associated Artery/Lesion type: [place] artery [place] vs. transplanted heart: [place] heart Associated angina: without angina Qualified Code(s): I25.10 - Atherosclerotic heart disease of [place] coronary artery withou t angina pectoris (8) Dementia Qualifiers: Dementia type: Alzheimer's disease Alzheimer's disease onset: late-onset Dementia behavioral disturbance: without behavioral disturbance Qualified Code(s): G30.1 - Alzheimer's disease with late onset; F02.80 - Dementia in other diseases classified elsewhere without behavioral disturbance
[2018-01-18] MEDS: 0.9 % Sodium Chloride 1,000 ML IVC SCH ×2 (10:58→20:01)
[2018-01-18 16:44] LABS: Hematocrit 32.6 % (35.3-44.9)
[2018-01-18 16:45] LABS: Hemoglobin 10.8 g/dL (11.5-15.4)
[2018-01-18] MEDS: Melatonin 3 MG TABLET PO SCH (20:01)
[2018-01-18 22:47] LABS: Hematocrit 29.1 % (35.3-44.9); Hemoglobin 9.8 g/dL (11.5-15.4)
[2018-01-19] MEDS: *HR* OxyCODONE/APAP 5/325 TABLET PO PRN ×2 (04:38→10:52)
[2018-01-19 05:58] LABS: Basophils # 0.1 K/mcL (0.0-0.2); Basophils % 0.7 %; Eosinophils # 0.6 K/mcL (0.0-0.6); Eosinophils % 6.8 %; Hematocrit 31.1 % (35.3-44.9); Hemoglobin 10.4 g/dL (11.5-15.4); Immature Granulocytes % 0.8 % (0-4); Lymphocytes # 3.2 K/mcL (0.6-4.6); Lymphocytes % 35.5 %; Mean Corpuscular HGB Conc 33.4 g/dL (31.6-35.5); Mean Corpuscular Hemoglobin 29.7 pg (28.0-33.3); Mean Corpuscular Volume 88.9 fL (83.0-100.0); Mean Platelet Volume 10.8 fL (9.4-12.4); Monocytes # 1.2 K/mcL (0.0-1.3); Monocytes % 12.6 %; Platelet Count 227 K/mcL (140-400); Red Cell Distribution Width 18.2 % (11.5-14.5); Segmented Neutrophils % 43.6 %
[2018-01-19] MEDS: Nitrofurantoin (BID) 100 MG CAPSULE PO SCH (07:57)
[2018-01-19] MEDS: Aspirin Enteric Coated 81 MG Tablet PO SCH (07:57)
--- NOTE | 2018-01-19 09:26 | Discharge Summary ---
<Ronit Gomez - Last Filed: 01/19/18 15:48> - NOTES TO OUTPATIENT PROVIDER Notes to Outpatient Provider: Per cards and d/w family for paroxysmal afib she should continue on daily ASA 81 mg; scds at ECF until improved ambulation given she is not a post hip repair pharmacologic vte ppx candidate Orders not resulted at time of discharge: Pending orders 01/16/18 08:00 ECG 12 lead ECG [ECG] Routine Date of Encounter: 01/19/18 - Discharge Diagnosis (1) Recurrent UTI Status: Acute (2) Hairy cell leukemia Status: Chronic Qualifiers: Leukemia Active/Remission status: in remission Qualified Code(s): 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, in remission (3) Hypertension Status: Chronic Qualifiers: Hypertension type: essential hypertension Qualified Code(s): I10 - Essential (primary) hypertension (4) Closed right hip fracture Status: Acute Qualifiers: Encounter type: initial encounter Qualified Code(s): S72.001A - Fracture of unspecified part of neck of right femur, initial encounter for closed fracture (5) Atrial fibrillation Status: Chronic Qualifiers: Atrial fibrillation type: paroxysmal Qualified Code(s): I48.0 - Paroxysmal atrial fibrillation (6) CAD (coronary artery disease) Status: Chronic Qualifiers: Coronary Disease-Associated Artery/Lesion type: [place] artery [place] vs. transplanted heart: [place] heart Associated angina: without angina Qualified Code(s): I25.10 - Atherosclerotic heart disease of [place] coronary artery without angina pectoris (7) Dementia Status: Chronic Qualifiers: Dementia type: Alzheimer's disease Alzheimer's disease onset: late-onset Dementia behavioral disturbance: without behavioral disturbance Qualified Code(s): G30.1 - Alzheimer's disease with late onset; F02.80 - Dementia in other diseases classified elsewhere without behavioral disturbance (8) Anemia Status: Resolved Hospital course: Ms. Hernandez is a 82 year old female - Time Spent with Patient Total time spent providing and/or coordinating discharge services: Greater than 30 minutes (35) - Discharge Medications Prescriptions: OxyCODONE/APAP 5/325 [Percocet 5/325 MG] 1 each PO Q6HR PRN 1 Days #4 tablet PRN Reason: Severe Pain Nitrofurantoin (BID) [Macrobid] 100 mg PO BIDWM 2 Days #4 capsule Home Medications: Omeprazole [PriLOSEC] 40 mg PO DAILY 12/08/17 [History] Citalopram Hydrobromide [Citalopram HBr] 10 mg PO DAILY 01/12/18 [History] Docusate [Colace] 100 mg PO DAILY 01/12/18 [History] Melatonin 5 mg PO HS 01/12/18 [History] Multivitamin [One Daily Multivitamin] 1 each PO DAILY 01/12/18 [History] Aspirin Enteric Coated [Aspirin EC] 81 mg PO DAILY tablet. 01/19/18 [Rx] Bisacodyl [Dulcolax] 10 mg RC DAILY PRN supp.rect 01/19/18 [Rx] Nitrofurantoin (BID) [Macrobid] 100 mg PO BIDWM 2 Days #4 capsule 01/19/18 [Rx] OxyCODONE/APAP 5/325 [Percocet 5/325 MG] 1 each PO Q6HR PRN 1 Days #4 tablet 01/19/18 [Rx] Polyethylene Glycol 3350 [MiraLAX] 17 gm PO DAILY powd.pack 01/19/18 [Rx] Allergies/Adverse Reactions: Allergy/AdvReac Type Severity Reaction Status Date / Time albuterol Allergy Hallucinati Verified 01/12/18 16:29 ng ciprofloxacin [From Cipro] Allergy Nausea Verified 12/08/17 08:06 Penicillins [PCN] Allergy Rash Verified 12/08/17 08:06 Sulfa (Sulfonamide Allergy Anaphylaxis Verified 12/08/17 08:06 Antibiotics) Date of admission: 01/12/18 16:52 Primary care physician: Rhonda Shay Consults: 01/12/18 15:54 Consult to Orthopedic Surgery [CONS] Stat Consulting Provider: [facility] Reason for Consult: right hip fracture Time Notified: 15:59 Call Completed: Yes 01/12/18 19:04 Consult to Cardiology [CONS] Routine Comment: Consulting Provider: [facility] Reason for Consult: cardiac clearance for right hip fracture surgery Call Completed: Yes 01/14/18 09:58 Consult to Orthopedic Navigator [CONS] [CONS] Routine Consult to Business Excellence Leader [CONS] Routine Reason for SW Consult: post -op hip fracture RT Post Op Consult [CONS] Routine 01/14/18 16:59 Consult to Occupational Therapy [CONS] Routine Comment: Evaluate, develop and implement POC Reason for Consult: status post right hip pinning Does patient have active BEDREST order?: No Is patient medically & hemodynamically stable?: Yes Consult to Physical Therapy [CONS] Routine Comment: Evaluate, develop and implement POC Reason for Consult: Status post right hip pinning Does patient have active BEDREST order?: No Is patient medically & hemodynamically stable?: Yes - Constitutional Vitals: Temp Pulse Resp BP Pulse Ox 98.0 F 97 18 132/79 92 01/19/18 10:53 01/19/18 10:53 01/19/18 10:53 01/19/18 10:53 01/19/18 10:53 - Patient Status Disposition: Transfer SNF Condition: Good Overall status at discharge: patient is progressing back to baseline - Ambulatory Orders Ambulatory Orders: Complete Blood Count [HEME] Time Frame: 2 Days, Facility: [facility], Location: Lab - Discharge Instructions Instructions: Atrial Fibrillation (DC), Acute Respiratory Distress Syndrome (DC), Urinary Tract Infection in Women (DC), Sepsis (DC), Chronic Hypertension (DC), Anemia (GEN), Fall Prevention (DC), Pneumonia (DC) Follow Up With: Rhonda Shay MD [Primary Care Provider] - Earl Badillo MD [Partnered Physician] - - Attending Attestation I examined this patient and my medical decision-making was reviewed with the Resident Physician Dr Mon. I agree with the documented findings, disposition and treatment plan as described except to the extent set forth below. Ms Hernandez is admitted with right hip fx s/p right hip open reduction intramedullary nail fixation 01/14. She has hx of dementia She has addl hx recurrent UTIs and is diagnosed this admission with UTI. Post op anemia on pharm vte ppx awake on bedside commode and ok to come in per pt, no family present, + pain in right hip joint but tolerable and increasing rom hip without pain as pt demonstrated. no cp, palpitations, sob. eating and drinkign without difficulty. denies urinary issues. Feeling as if she is going to have bowel movement. no abd pain, nausea or emesis gen-awake, appears stated age cv- reg rate and rhythm, normal s1,s2, no murmurs appreciated, no le edema lungs- ctabl, no wheezing, rhonchi or crackles, normal resp effort on ra skin- right hip dressing clean dry intact, thigh ecchymosis without any appreciable hematomoa or pain to palpation neuro- AAO x person r hip fracture- s/p OR, post op care as per ortho, to traditions vte ppx with scds as d.w ortho team prior to dc, Dr Badillo outpt fu paf hx previously on eliquis stopped by pcp as no recurrence and BB which was dc due to hypotension, monitoring lytes, chadsvasc 5 but given falls cards rec and family agrees asa only best given risk vs benefit -01/15 evening she had episode of sustained tachy into 160s with normal bps and + palpitations- ekg obtained at that rate showed regular r to r intervals but no identifiable p waves- sinus tach vs afib. she responded well to one time iv lopressor and repeat ekgs sinus -has remained nsr leukocytosis resolved 01/16 likely reactive s/p fx and UTI, resolved history MDRO utis, old cxs reviewed,allergies reviewed ucx confirmed uti and sensitivities reviewed- cont macrobid to complete course acute blood loss anemia 2/2 fracture- s/p prbc 12/2 and hgb stable n 10s, d/w ortho team prior to dc and scds onloy on dc to snf further diagnoses and treatment as documented by resident dispo- to traditions, I have contacted daughter Anyi and updated her to dc and ortho rec to hld pharm vte ppx on dc, had no questions <Chris Basurto - Last Filed: 01/19/18 18:29> - NOTES TO OUTPATIENT PROVIDER Notes to Outpatient Provider: Patient was admitted and treated right intertrochanteric hip fracture after a mechanical fall. She recieved internal fixation via orthopedic surgery and tolerated the procedure well. Patient was kept for several more days and transfused with 2 units PRBC secondary to blood loss anemia. Patient has history of AFib but in discussion with Ortho, Family, decision was made to hold anticoagulation and use compression stockings due to risk of bleed. Patient was also treated for UTI. At time of discharge H&H and UTI are stable. Will discharge on 2 days Macrobid, 1 day opiates. Patient will require additional 4 days opiates and bowel regimen. Will order CBC in 2 days. Orders not resulted at time of discharge: Pending orders 01/16/18 08:00 ECG 12 lead ECG [ECG] Routine 01/17/18 20:42 EKG [ECG 12 lead ECG] [ECG] Routine Date of Encounter: 01/19/18 Time of Encounter: 09:24 - Discharge Diagnosis (1) Closed right hip fracture Priority: Primary Status: Acute Assessment and Plan: Right hip fracture s/p mechanical fall while pulling a drawer out. Never had a fracture before. comminuted intertrochanteric fracture of right femoral neck -s/p 01/14/2018 right hip open reduction intramedullary nail fixation by Orthopedic surgery -pain control with oxycodone -PT/OT consulted -patient to be discharged to SNF for PT/OT. Qualifiers: Encounter type: initial encounter Qualified Code(s): S72.001A - Fracture of unspecified part of neck of right femur, initial encounter for closed fracture (2) Recurrent UTI Priority: Secondary Status: Acute Assessment and Plan: WBC 9.1, Afebrile Etiology secondary to acute hip fracture consider also UTI. 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 CXR unremarkable U/A: trace LE asymptomatic Urine culture- GPC. Sensitive to Macrobid appropriate urine output -Continue Macrobid day 5, discharge with 2 additional days (3) Hairy cell leukemia Priority: Secondary Status: Chronic Assessment and Plan: history of known hairy cell leukemia Qualifiers: Leukemia Active/Remission status: in remission Qualified Code(s): 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, in remission (4) Hypertension Priority: Secondary Status: Chronic Assessment and Plan: History of HTN but taken off BP meds due to hypotension. BP stable. Qualifiers: Hypertension type: essential hypertension Qualified Code(s): I10 - Esse ntial (primary) hypertension (5) Atrial fibrillation Priority: Secondary Status: Chronic Assessment and Plan: history of A.fib. not on anticoagulation. stable. During hospital stay had an event where she became tachycardic in the 130s. EKG demonstrated what was sinus tachycardia vs atrial fibrillation. Tachycardia resolved after metoprolol was given. Daughter stated that patient had history of proximal atrial fibrillation but was taken off anticoagulation years ago and is not on any blood pressure medications due to hypotension. Daughter also stated that should the patient go into atrial fibrillation the patient is not to be anticoagulated. This conversation was discussed between the patient and Dr. Gutierres over the phone. -Heart rate has been stable since, will not continue metoprolol at discharge Qualifiers: Atrial fibrillation type: paroxysmal Qualified Code(s): I48.0 - Paroxysmal atrial fibrillation (6) CAD (coronary artery disease) Priority: Secondary Status: Chronic Assessment and Plan: Known CAD. Stable cardiology evaluated prior to orthopedic surgery Qualifiers: Coronary Disease-Associated Artery/Lesion type: [place] artery [place] vs. transplanted heart: [place] heart Associated angina: without angina Qualified Code(s): I25.10 - Atherosclerotic heart disease of [place] coronary artery without angina pectoris (7) Dementia Priority: Secondary Status: Chronic Assessment and Plan: History known dementia. Alert and oriented to person, sometimes place/situation, orientation appears to be labile. She is no acute distress. Qualifiers: Dementia type: Alzheimer's disease Alzheimer's disease onset: late-onset Dementia behavioral disturbance: without behavioral disturbance Qualified Code(s): G30.1 - Alzheimer's disease with late onset; F02.80 - Dementia in other diseases classified elsewhere without behavioral disturbance (8) Anemia Priority: Secondary Status: Resolved Assessment and Plan: Anemia status post right hip surgery. hemoglobin improved to 10.4 no obvious active bleeding -s/p surgery hemoglobin was noted to be decreased at 7.7 so patient was ordered to be transfused [address] Badillo the orthopedic surgeon was called and notified and he agreed to hold heparin for DVT prophylaxis. Hemoglobin stable now. Discussed with Orthopedics and family and patient will not be anticoagulated outpatient due to fall and bleed risk. Hospital course: Ms. Hernandez is a 82 year old female with PMH of dementia, hairy cell leukemia, CAD who presented to [facility] after fall. She had an unwitnessed fall at home when pulling a drawer out. Her home health nurse heard her yell for help. She reported she did not hit her head. She is not on anticoagulation. She has never had a fall in the past. Of note, she had a holter monitor on December due to V.fib. On examination her daughter and home health aid were at bedside. They report that her PCP has taken her off all of her BP meds due to hypotension. She denied chest pain, shortness of breath, fever, chills, headache, change in vision, nausea, vomiting, dysuria, hematuria. She denies alc ohol, drug, and smoking. XRAY demonstrated right intertrochanteric hip fracture. CBC demonstrated leukocytosis. Orthopedics consutled, patient admitted for hip fracture. CRIF with intramedullary nail was performed without incident. Patient tolerated procedure well and PT/OT were consulted for assessment for later placement to rehab. Over the next several days the patient became anemic likely secondary to blood loss and leukocytotic secondary to UTI. She was transfused 2 units and started on macrobid. She also had an episode of tachycardia but it was discussed with family and anticoagulation was not started due to fall risk. The patients hemoglobin, white count, and clinical condition were stabilized and she was transferred to SNF for further PT/OT and rehabilitation with 2 days macrobid, 1 day oxycodone with insructions for 4 more days, bowel regimen, CBC in 2 days, and compression stockings for VTE prophylaxis. Discharge discussed with: patient, family, nurse - Time Spent with Patient Total time spent providing and/or coordinating discharge services: Date of admission: 01/12/18 16:52 Primary care physician: Rhonda Shay Consults: 01/12/18 15:54 Consult to Orthopedic Surgery [CONS] Stat Consulting Provider: [facility] Reason for Consult: right hip fracture Time Notified: 15:59 Call Completed: Yes 01/12/18 19:04 Consult to Cardiology [CONS] Routine Comment: Consulting Provider: Dolly [facility] Reason for Consult: cardiac clearance for right hip fracture surgery Call Completed: Yes 01/14/18 09:58 Consult to Orthopedic Navigator [CONS] [CONS] Routine Consult to Business Excellence Leader [CONS] Routine Reason for SW Consult: post -op hip fracture RT Post Op Consult [CONS] Routine 01/14/18 16:59 Consult to Occupational Therapy [CONS] Routine Comment: Evaluate, develop and implement POC Reason for Consult: status post right hip pinning Does patient have active BEDREST order?: No Is patient medically & hemodynamically stable?: Yes Consult to Physical Therapy [CONS] Routine Comment: Evaluate, develop and implement POC Reason for Consult: Status post right hip pinning Does patient have active BEDREST order?: No Is patient medically & hemodynamically stable?: Yes Discharging clinician: Chris Basurto Anticipated date of discharge: 01/19/18 - Constitutional Vitals: Temp Pulse Resp BP Pulse Ox 98.2 F 83 14 132/72 91 01/19/18 06:52 01/19/18 06:52 01/19/18 06:52 01/19/18 06:52 01/19/18 06:52 General appearance: Present: A&O X 2 (person and place), pleasant, no acute distress Exam: Gen.: Vitals noted. No acute distress. A&Ox2 person and place only HEENT: oropharynx clear, Normocephalic, atraumatic Cardiac: RRR, no murmur, +S1/S2, no BLE edema Pulmonary: CTA bilaterally, no wheezes, mild RLL crackles Abdomen: soft, left lower quadrant tender, Bowel sounds noted, no guarding MSK: right hip tender, no joint swelling noted, bandage C/D/I, ecchymosis noted along inside left upper thigh, not edematous or indurated or tender, does not extend into groin Extremities: nontender calf, no cyanosis or clubbing Neuro: moves all extremities, no focal deficits Psych: Appropriate mood and behavior - Patient Status Functional capacity at discharge: uses cane/walker Overall status at discharge: patient is progressing back to baseline - Diet and Activity Activity: as per physical therapy Diet: advance to your usual diet
--- NOTE | 2018-01-19 14:06 | Physician Discharge Referral ---
ExtendedCare Referral Info Transfer To: [facility] Provider in Charge after Transfer: PCP - Diagnosis (1) Recurrent UTI Priority: Secondary Status: Acute (2) Hairy cell leukemia Priority: Secondary Status: Chronic (3) Hypertension Priority: Secondary Status: Chronic (4) Closed right hip fracture Priority: Primary Status: Acute (5) Atrial fibrillation Priority: Secondary Status: Chronic (6) CAD (coronary artery disease) Priority: Secondary Status: Chronic (7) Dementia Priority: Secondary Status: Chronic (8) Anemia Priority: Secondary Status: Acute - Transfer Medications Home Medications: Omeprazole [PriLOSEC] 40 mg PO DAILY 12/08/17 [History] Citalopram Hydrobromide [Citalopram HBr] 10 mg PO DAILY 01/12/18 [History] Docusate [Colace] 100 mg PO DAILY 01/12/18 [History] Melatonin 5 mg PO HS 01/12/18 [History] Multivitamin [One Daily Multivitamin] 1 each PO DAILY 01/12/18 [History] Allergies/Adverse Reactions: Allergy/AdvReac Type Severity Reaction Status Date / Time albuterol Allergy Hallucinati Verified 01/12/18 16:29 ng ciprofloxacin [From Cipro] Allergy Nausea Verified 12/08/17 08:06 Penicillins [PCN] Allergy Rash Verified 12/08/17 08:06 Sulfa (Sulfonamide Allergy Anaphylaxis Verified 12/08/17 08:06 Antibiotics) - Respiratory Orders None Smoking Cessation: Smoking cessation has been advised. For more information, call the [place] Tobacco Quit Line at 0-715-PHYL-NOW. - Lab Orders Lab Orders: CBC (2 days to assess hgb) - Mobility Orders Other (partial weight bearing RLE) - Rehabiliation Orders Rehab Potential: Good - Treatments List/Other: Monitor for bms on pain medications. Up to five days of pain medication s/p hip repair. Follow up with ortho office. VTE ppx is with SCDS as she ahs anemia and did not tolerate heparin sq vte ppx. Defer to ECF to stop SCDs when fully ambulatory CERTIFICATION: I certify that the transfer of the above named patient to an Extended Care Facility is necessary for the continuing treatment of the diagnosis listed. The above information is true and accurate reflection of patient's current condition. Confidential - Redisclosure prohibited without a patient's written consent.
--- NOTE | 2018-01-19 14:39 | Electrocardiograph Report ---
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
--- NOTE | 2018-01-19 14:40 | Electrocardiograph Report ---
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
--- NOTE | 2018-01-19 15:26 | Physician Discharge Referral ---
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 (4) Hypertension Priority: Secondary Status: Chronic (5) Atrial fibrillation Priority: Secondary Status: Chronic (6) CAD (coronary artery disease) Priority: Secondary Status: Chronic (7) Dementia Priority: Secondary Status: Chronic (8) Anemia Priority: Secondary Status: Resolved Prognosis: Good Aware of Diagnosis: Family Aware of Prognosis: Family - Transfer Medications Prescriptions: OxyCODONE/APAP 5/325 [Percocet 5/325 MG] 1 each PO Q6HR PRN 1 Days #4 tablet PRN Reason: Severe Pain Nitrofurantoin (BID) [Macrobid] 100 mg PO BIDWM 2 Days #4 capsule Home Medications: Omeprazole [PriLOSEC] 40 mg PO DAILY 12/08/17 [History] Citalopram Hydrobromide [Citalopram HBr] 10 mg PO DAILY 01/12/18 [History] Docusate [Colace] 100 mg PO DAILY 01/12/18 [History] Melatonin 5 mg PO HS 01/12/18 [History] Multivitamin [One Daily Multivitamin] 1 each PO DAILY 01/12/18 [History] Aspirin Enteric Coated [Aspirin EC] 81 mg PO DAILY tablet.dr 01/19/18 [Rx] Bisacodyl [Dulcolax] 10 mg RC DAILY PRN supp.rect 01/19/18 [Rx] Nitrofurantoin (BID) [Macrobid] 100 mg PO BIDWM 2 Days #4 capsule 01/19/18 [Rx] OxyCODONE/APAP 5/325 [Percocet 5/325 MG] 1 each PO Q6HR PRN 1 Days #4 tablet 01/19/18 [Rx] Polyethylene Glycol 3350 [MiraLAX] 17 gm PO DAILY powd.pack 01/19/18 [Rx] Allergies/Adverse Reactions: Allergy/AdvReac Type Severity Reaction Status Date / Time albuterol Allergy Hallucinati Verified 01/12/18 16:29 ng ciprofloxacin [From Cipro] Allergy Nausea Verified 12/08/17 08:06 Penicillins [PCN] Allergy Rash Verified 12/08/17 08:06 Sulfa (Sulfonamide Allergy Anaphylaxis Verified 12/08/17 08:06 Antibiotics) - Respiratory Orders None Smoking Cessation: Smoking cessation has been advised. For more information, call the [employer] Line at [phone]. - Lab Orders Lab Orders: CBC (CBC in 2 days for anemia) - Advance Directives Code Status: Full Code - Mobility Orders Ambulate (ambulate with assisstace per PT recommendations) - Rehabiliation Orders Rehab Potential: Good Rehab Orders: Evaluation for Physical Therapy, Evaluation for Occupational Therapy - Treatments List/Other: Patient is unable to be anticoagulated due to risk of fall/bleed, will require compression stockings for DVT prophylaxis. Patient is being discharged on 1 day oxycodone, will likely require 4 more days with bowel regimen for constipation. CBC in 2 days, 2 more days Macrobid prescribed for UTI. - Diet Orders Regular House Supplement per Dietary: apple clear ensure brk, vanilla magic cup L & D CERTIFICATION: I certify that the transfer of the above named patient to an Extended Care Facility is necessary for the continuing treatment of the diagnosis listed. The above information is true and accurate reflection of patient's current conditi on. Confidential - Redisclosure prohibited without a patient's written consent. <Ronit Gomez - Last Filed: 01/19/18 15:53> Extended[facility] Referral Info Provider in Charge after Transfer: PCP (NOT Patricia (hospitalist)) - Diagnosis (1) Recurrent UTI Status: Acute (2) Hairy cell leukemia Status: Chronic (3) Hypertension Status: Chronic (4) Closed right hip fracture Status: Acute (5) Atrial fibrillation Status: Chronic (6) CAD (coronary artery disease) Status: Chronic (7) Dementia Status: Chronic (8) Anemia Status: Resolved - Respiratory Orders None Smoking Cessation: Smoking cessation has been advised. For more information, call the [employer] Line at [phone]. - Lab Orders Lab Orders: CBC, Other (include drug levels w/frequency) (scds at rest until ambulating regularly as is not a post hip repair pharmacologic vte ppx candidate due to bleeding) - Mobility Orders Ambulate (ambulate with assisstace per PT recommendations, partial weight bearing RLE at time of dc) - Treatments List/Other: requires outpt fu with ortho surg Dr Badillo CERTIFICATION: I certify that the transfer of the above named patient to an Extended Care Facility is necessary for the continuing treatment of the diagnosis listed. The above information is true and accurate reflection of patient's current condition. Confidential - Redisclosure prohibited without a patient's written consent.
[2018-01-19 15:59] VITALS: BP 133/77
== END 2018-01-19 16:47 | DRG 481 ==
LOC: EMEROOARM 14:19 → 3ANU 16:52 → SUATTDRO 16:52 → 3ANU 17:49 → 3NENU 01-13 15:59
PROVIDERS: ADMIT Hospitalist; ATTEND Internal Medicine